=== PATIENT | male | born 1965 | race Two or more races ===

== ENCOUNTER 2017-04-30 10:40 | Inpatient (IN) | payer MEDICAID ==
[~2017-04-30] VITALS: Ht 162.6 cm; Wt 62.6 kg
[2017-04-30 10:57] VITALS: BP 147/100
--- NOTE | 2017-04-30 11:11 | Emergency Room Report ---
History of Present Illness General Chief Complaint: Malfunctioning Gastric Tube Source: Medical Record, EMS Present Illness HPI This patient presents from a custodial facility. He presents for dislodgment of his G-tube he. Per report, the G-tube was dislodged yesterday. There was no temporary placement of a Arreola catheter there were other device to keep the G-tube site patent. There no other complaints. The patient has a history of CVA and hemiparesis, seizure disorder. Allergies: Coded Allergies: No Known Allergies (Unverified , 04/30/17) Patient History Past Medical History: see triage record, HTN, GERD, CVA/TIA, dementia Past Surgical History: other - craniectomy, G-tube Social History: Denies: alcohol use, drug use, smoking Reviewed Nursing Documentation: PMH: Agreed, PSxH: Agreed Nursing Documentation-PMH Hx Cardiac Problems: Yes - Cardiomypathy Hx Hypertension: Yes Hx Gastrointestinal Problems: Yes - GERD Esophagitis, GT History Of Psychiatric Problem: Yes - Psychosis Hx Cerebrovascular Accident: Yes - hemiplegia, CVA left side Hx Seizures: Yes - convulsions Review of Systems All Other Systems: negative except mentioned in HPI Physical Exam Vital Signs Date Time Temp Pulse Resp B/P Pulse Ox O2 Delivery O2 Flow Rate FiO2 04/30/17 10:35 98.1 91 14 145/104 97 Sp02 EP Interpretation: reviewed, normal General Appearance: no apparent distress, alert, GCS 15, non-toxic Head: normocephalic, atraumatic ENT: no angioedema Neck: full range of motion Respiratory: chest non-tender, lungs clear, normal breath sounds, no respiratory distress, no retraction, no accessory muscle use Cardiovascular #1: regular rate, rhythm, no edema Gastrointestinal: non tender, soft, non-distended, no guarding, no rebound, other - G-tube site closed Rectal: deferred Musculoskeletal: other - At baseline Neurologic: alert, sensory intact, other - At baseline, hemiplegia, non-verbal Psychiatric: mood/affect normal Skin: well hydrated Medical Decision Making Diagnostic Impression: Primary Impression: Gastrojejunostomy tube dislodgement ER Course This patient presents with the G-tube dislodgment. This happened yesterday and there was no internum Arreola catheter placed in the G-tube site and the site is now closed. I am unable to replace the G-tube in the emergency room. This patient will made G-tube replacement operating room with a roustabout supervisor. Labs Test 04/30/17 11:15 White Blood Count 6.5 K/UL (4.8-10.8) Red Blood Count 5.37 M/UL (4.70-6.10) Hemoglobin 17.5 G/DL (14.2-18.0) Hematocrit 51.3 % (42.0-52.0) Mean Corpuscular Volume 96 FL (80-99) Mean Corpuscular Hemoglobin 32.6 PG (27.0-31.0) Mean Corpuscular Hemoglobin Concent 34.1 G/DL (32.0-36.0) Red Cell Distribution Width 11.6 % (11.6-14.8) Platelet Count 212 K/UL (150-450) Mean Platelet Volume 9.4 FL (6.5-10.1) Neutrophils (%) (Auto) 69.4 % (45.0-75.0) Lymphocytes (%) (Auto) 22.2 % (20.0-45.0) Monocytes (%) (Auto) 5.1 % (1.0-10.0) Eosinophils (%) (Auto) 2.2 % (0.0-3.0) Basophils (%) (Auto) 1.1 % (0.0-2.0) Sodium Level 141 mEQ/L (135-145) Potassium Level 4.0 mEQ/L (3.4-4.9) Chloride Level 101 mEQ/L (98-107) Carbon Dioxide Level 24 mEQ/L (20-30) Anion Gap 16 (5-15) Blood Urea Nitrogen 15 mg/dL (7-23) Creatinine 0.7 mg/dL (0.7-1.2) Estimat Glomerular Filtration Rate > 60 mL/min (>60) Glucose Level 100 mg/dL (74-106) Calcium Level 9.5 mg/dL (8.6-10.2) Last Vital Signs Date Time Temp Pulse Resp B/P Pulse Ox O2 Delivery O2 Flow Rate FiO2 04/30/17 10:57 98.1 91 16 147/100 100 Disposition: ADMITTED INPATIENT Condition: Stable MELINDA KAHN D.O. Apr 30, 2017 11:11
[2017-04-30 11:30] VITALS: BP 123/89
[2017-04-30] MEDS ORDERED: ACETAMINOPHEN120 MG PO (11:33)
[2017-04-30] MEDS ORDERED: LOPRESSOR HCT1 EAC3 ORAL (11:33)
[2017-04-30] MEDS ORDERED: FLEET ENEMA133 M1 RC (11:33)
[2017-04-30] MEDS ORDERED: SIMVASTATIN20 MG ORAL (11:33)
[2017-04-30] MEDS ORDERED: ASPIR 8181 MG ORAL (11:33)
[2017-04-30] MEDS ORDERED: MULTI-DAY PLUS1 EAC1 PO (11:33)
[2017-04-30] MEDS ORDERED: KEPPRA500 M4 ORAL (11:33)
[2017-04-30 11:36] LABS: BASOPHILS % (AUTO) 1.1 % (0.0-2.0); EOSINOPHILS % (AUTO) 2.2 % (0.0-3.0); LYMPHOCYTES % (AUTO) 22.2 % (20.0-45.0); MEAN CORPUSCULAR HEMOGLOBIN 32.6 PG (27.0-31.0); MEAN CORPUSCULAR HGB CONC 34.1 G/DL (32.0-36.0); MEAN CORPUSCULAR VOLUME 96 FL (80-99); MEAN PLATELET VOLUME 9.4 FL (6.5-10.1); MONOCYTES % (AUTO) 5.1 % (1.0-10.0); NEUTROPHILS % (AUTO) 69.4 % (45.0-75.0); PLATELET COUNT 212 K/UL (150-450); RED BLOOD COUNT 5.37 M/UL (4.70-6.10); RED CELL DISTRIBUTION WIDTH 11.6 % (11.6-14.8); WHITE BLOOD COUNT 6.5 K/UL (4.8-10.8)
[2017-04-30 12:01] LABS: ANION GAP 16 (5-15); CALCIUM 9.5 mg/dL (8.6-10.2); CARBON DIOXIDE 24 mEQ/L (20-30); CHLORIDE 101 mEQ/L (98-107); CREATININE 0.7 mg/dL (0.7-1.2); GLOMERULAR FILTRATION RATE > 60 mL/min (>60); HEMOLYSIS 14; SODIUM 141 mEQ/L (135-145)
[2017-04-30 12:30] VITALS: BP 123/86
[2017-04-30] MEDS ORDERED: LORazepam Inj 2mg/ml 1ml IV PRN (12:30)
[2017-04-30] MEDS ORDERED: Morphine Sulfate 2mg/ml Inj IVP PRN (13:00)
[2017-04-30] MEDS: D5 1/2NS 1,000 ML IV SCH (14:03)
[2017-04-30 15:48] VITALS: BP 131/89
--- NOTE | 2017-04-30 16:02 | History and Physical ---
History of Present Illness General Reason for Hospitalization: Malfunctioning Gastric Tube Present Illness Allergies: Coded Allergies: No Known Allergies (Unverified , 04/30/17) Medication History Scheduled Aspirin* (Aspir 81*), 81 MG ORAL DAILY, (Reported) Levetiracetam (Keppra), 500 MG ORAL EVERY 12 HOURS, (Reported) Metoprolol/Hydrochlorothiazide (Lopressor Hct 50-25 Tablet), 1 TAB ORAL Q12HR, ( Reported) Multivitamin-Min/Iron/FA/Vit K (Multi-Day Plus Minerals Tablet), 1 EACH PO DAILY , (Reported) Na Phos,M-B/Na Phos,Di-Ba (Fleet Enema), 133 ML RC EVERY OTHER DAY, (Reported) Simvastatin (Zocor), 20 MG ORAL BEDTIME, (Reported) Scheduled PRN Acetaminophen* (Tylenol*), 650 MG PO Q4H PRN for For Pain, (Reported) Patient History Healthcare decision maker Chuckie valencia Resuscitation status Full Code Advanced Directive on File No Physical Exam Last 24 Hour Vital Signs Date Time Temp Pulse Resp B/P Pulse Ox O2 Delivery O2 Flow Rate FiO2 04/30/17 15:48 98.2 94 22 131/89 99 Room Air 04/30/17 12:54 98.1 84 15 123/86 95 Room Air 04/30/17 12:30 84 15 123/86 95 Room Air 04/30/17 11:30 84 20 123/89 93 Room Air 04/30/17 10:57 98.1 91 16 147/100 100 04/30/17 10:35 98.1 91 14 145/104 97 Laboratory Tests Test 04/30/17 11:15 White Blood Count 6.5 K/UL (4.8-10.8) Red Blood Count 5.37 M/UL (4.70-6.10) Hemoglobin 17.5 G/DL (14.2-18.0) Hematocrit 51.3 % (42.0-52.0) Mean Corpuscular Volume 96 FL (80-99) Mean Corpuscular Hemoglobin 32.6 PG (27.0-31.0) H Mean Corpuscular Hemoglobin Concent 34.1 G/DL (32.0-36.0) Red Cell Distribution Width 11.6 % (11.6-14.8) Platelet Count 212 K/UL (150-450) Mean Platelet Volume 9.4 FL (6.5-10.1) Neutrophils (%) (Auto) 69.4 % (45.0-75.0) Lymphocytes (%) (Auto) 22.2 % (20.0-45.0) Monocytes (%) (Auto) 5.1 % (1.0-10.0) Eosinophils (%) (Auto) 2.2 % (0.0-3.0) Basophils (%) (Auto) 1.1 % (0.0-2.0) Prothrombin Time 10.0 SEC (9.30-11.50) Prothromb Time International Ratio 1.0 (0.9-1.1) Activated Partial Thromboplast Time 28 SEC (23-33) Sodium Level 141 mEQ/L (135-145) Potassium Level 4.0 mEQ/L (3.4-4.9) Chloride Level 101 mEQ/L (98-107) Carbon Dioxide Level 24 mEQ/L (20-30) Anion Gap 16 (5-15) H Blood Urea Nitrogen 15 mg/dL (7-23) Creatinine 0.7 mg/dL (0.7-1.2) Estimat Glomerular Filtration Rate > 60 mL/min (>60) Glucose Level 100 mg/dL (74-106) Calcium Level 9.5 mg/dL (8.6-10.2) Height (Feet): 5 Height (Inches): 4.00 Weight (Pounds): 138 Medications Current Medications Medications (Trade) Dose Ordered Sig/Jermaine Route PRN Reason Start Time Stop Time Status Last Admin Dose Admin Dextrose STAT PRN IV Hypoglycemia 04/30/17 12:30 05/30/17 12:29 Dextrose/Sodium Chloride (D5 0.45% NS) 1,000 ml @ 50 mls/hr Q20H IV 04/30/17 12:30 05/30/17 12:29 04/30/17 14:03 Heparin Sodium (Porcine) (Heparin 5000 units/ml) 5,000 units EVERY 12 HOURS SUBQ 04/30/17 21:00 05/30/17 20:59 Lorazepam (Ativan 2mg/ml 1ml) 0.5 mg Q4H PRN IV For Anxiety 04/30/17 12:30 05/07/17 12:29 Morphine Sulfate (Morphine Sulfate) 1 mg Q4H PRN IVP For Pain 04/30/17 13:00 05/07/17 12:59 Ondansetron HCl (Zofran) 4 mg Q6H PRN IVP Nausea & Vomiting 04/30/17 12:30 05/30/17 12:29 MELANIE GARCIA Apr 30, 2017 16:02
[2017-04-30 20:00] VITALS: BP 125/92
[2017-04-30] MEDS: Heparin 5000 units/ml inj SUBQ SCH (22:02)
[2017-04-30 23:58] VITALS: BP 124/90
[2017-05-01 04:00] VITALS: BP 141/72
[2017-05-01 07:25] LABS: BASOPHILS % (AUTO) 1.2 % (0.0-2.0); EOSINOPHILS % (AUTO) 2.7 % (0.0-3.0); LYMPHOCYTES % (AUTO) 26.5 % (20.0-45.0); MEAN CORPUSCULAR HEMOGLOBIN 33.3 PG (27.0-31.0); MEAN CORPUSCULAR HGB CONC 34.9 G/DL (32.0-36.0); MEAN CORPUSCULAR VOLUME 95 FL (80-99); MONOCYTES % (AUTO) 7.2 % (1.0-10.0); NEUTROPHILS % (AUTO) 62.4 % (45.0-75.0); PLATELET COUNT 207 K/UL (150-450); RED BLOOD COUNT 5.06 M/UL (4.70-6.10); RED CELL DISTRIBUTION WIDTH 11.8 % (11.6-14.8); WHITE BLOOD COUNT 6.1 K/UL (4.8-10.8)
[2017-05-01 07:32] LABS: ALANINE AMINOTRANSFERASE 25 U/L (3-41); ALBUMIN/GLOBULIN RATIO 1.1 (1.0-2.7); ANION GAP 12 (5-15); ASPARTATE AMINO TRANSFERASE 23 U/L (5-40); CALCIUM 8.9 mg/dL (8.6-10.2); CARBON DIOXIDE 24 mEQ/L (20-30); CHLORIDE 105 mEQ/L (98-107); CHOLESTEROL 162 mg/dL (< 200); CHOLESTEROL/HDL RATIO 5.1 (3.3-4.4); CREATININE 0.7 mg/dL (0.7-1.2); GLOMERULAR FILTRATION RATE > 60 mL/min (>60); HEMOLYSIS 7; LDL CHOLESTEROL (CALC.) 93 mg/dL (60-99); POTASSIUM 3.5 mEQ/L (3.4-4.9); SODIUM 141 mEQ/L (135-145); TOTAL PROTEIN 7.8 g/dL (6.6-8.7)
[2017-05-01 08:02] VITALS: BP 128/89
--- NOTE | 2017-05-01 08:37 | Diagnostic Imaging Report ---
APPROVED REPORT CPT Code: 17187 Present Symptoms Lower Extremity Pain: Left BILATERAL: Imaging reveals a patent deep venous system bilaterally. There is no evidence of thrombus within the femoral, popliteal or tibial segments. The greater saphenous veins are also within normal limits. Doppler indicates normal spontaneous flow within these segments.
[2017-05-01] MEDS: D5 1/2NS 1,000 ML IV SCH (08:51)
[2017-05-01] MEDS: Heparin 5000 units/ml inj SUBQ SCH ×2 (08:51→20:34)
[2017-05-01 11:43] VITALS: BP 131/89
--- NOTE | 2017-05-01 14:16 | GI Initial Consult Note ---
History of Present Illness General Date patient seen: May 01, 2017 Time patient seen: 13:00 Reason for Hospitalization: Malfunctioning Gastric Tube Referring physician: MELANIE PALENCIA Reason for Consultation: GT DISLODGEMENT Present Illness HPI This patient presents from a snf facility. He presents for dislodgment of his G-tube he. Per report, the G-tube was dislodged yesterday. There was no temporary placement of a Arreola catheter there were other device to keep the G-tube site patent. There no other complaints. The patient has a history of CVA and hemiparesis, seizure disorder. GI Consult. HPI as noted above. GI consulted for GT dislodgement. GT stoma assessed, closed with min amounts of drainage noted. ROS limited. Home Meds Reported Medications Acetaminophen* (TYLENOL*) 120 Mg Supp.rect, 650 MG PO Q4H Y for For Pain, SUPP 04/30/17 Simvastatin (ZOCOR) 20 Mg Tablet, 20 MG ORAL BEDTIME, TAB 04/30/17 Multivitamin-Min/Iron/FA/Vit K (Multi-Day Plus Minerals Tablet) 1 Each Tablet, 1 EACH PO DAILY, TAB 04/30/17 Metoprolol/Hydrochlorothiazide (LOPRESSOR HCT 50-25 TABLET) 1 Each Tablet, 1 TAB ORAL Q12HR, TAB 04/30/17 Levetiracetam (KEPPRA) 500 Mg Tablet, 500 MG ORAL EVERY 12 HOURS, #60 TAB 0 Refills 04/30/17 Na Phos,M-B/Na Phos,Di-Ba (Fleet Enema) 133 Ml Enema, 133 ML RC EVERY OTHER DAY , EA 04/30/17 Aspirin* (ASPIR 81*) 81 Mg Tablet.dr, 81 MG ORAL DAILY, TAB 04/30/17 Med list reviewed/reconciled: Yes Allergies: Coded Allergies: No Known Allergies (Unverified , 04/30/17) Patient History Limited by: medical condition History Provided By: Medical Record PMH Narrative Past Medical History: see triage record, HTN, GERD, CVA/TIA, dementia Past Surgical History: other - craniectomy, G-tube Social History: Denies: alcohol use, drug use, smoking Reviewed Nursing Documentation: PMH: Agreed, PSxH: Agreed Nursing Documentation-PMH Hx Cardiac Problems: Yes - Cardiomypathy Hx Hypertension: Yes Hx Gastrointestinal Problems: Yes - GERD Esophagitis, GT History Of Psychiatric Problem: Yes - Psychosis Hx Cerebrovascular Accident: Yes - hemiplegia, CVA left side Hx Seizures: Yes - convulsions Social History: Denies: alcohol use, drug use, other, smoking Review of Systems All Other Systems: limited Physical Exam Vital Signs Date Time Temp Pulse Resp B/P Pulse Ox O2 Delivery O2 Flow Rate FiO2 04/30/17 10:35 98.1 91 14 145/104 97 04/30/17 11:30 Room Air Sp02 EP Interpretation: reviewed Labs Laboratory Tests Test 05/01/17 06:35 White Blood Count 6.1 K/UL (4.8-10.8) Red Blood Count 5.06 M/UL (4.70-6.10) Hemoglobin 16.9 G/DL (14.2-18.0) Hematocrit 48.3 % (42.0-52.0) Mean Corpuscular Volume 95 FL (80-99) Mean Corpuscular Hemoglobin 33.3 PG (27.0-31.0) H Mean Corpuscular Hemoglobin Concent 34.9 G/DL (32.0-36.0) Red Cell Distribution Width 11.8 % (11.6-14.8) Platelet Count 207 K/UL (150-450) Mean Platelet Volume 9.0 FL (6.5-10.1) Neutrophils (%) (Auto) 62.4 % (45.0-75.0) Lymphocytes (%) (Auto) 26.5 % (20.0-45.0) Monocytes (%) (Auto) 7.2 % (1.0-10.0) Eosinophils (%) (Auto) 2.7 % (0.0-3.0) Basophils (%) (Auto) 1.2 % (0.0-2.0) Sodium Level 141 mEQ/L (135-145) Potassium Level 3.5 mEQ/L (3.4-4.9) Chloride Level 105 mEQ/L (98-107) Carbon Dioxide Level 24 mEQ/L (20-30) Anion Gap 12 (5-15) Blood Urea Nitrogen 15 mg/dL (7-23) Creatinine 0.7 mg/dL (0.7-1.2) Estimat Glomerular Filtration Rate > 60 mL/min (>60) Glucose Level 106 mg/dL (74-106) Calcium Level 8.9 mg/dL (8.6-10.2) Total Bilirubin 0.9 mg/dL (0.0-1.2) Aspartate Amino Transf (AST/SGOT) 23 U/L (5-40) Alanine Aminotransferase (ALT/SGPT) 25 U/L (3-41) Alkaline Phosphatase 60 U/L (40-129) Total Protein 7.8 g/dL (6.6-8.7) Albumin 4.1 g/dL (3.5-5.2) Globulin 3.7 g/dL Albumin/Globulin Ratio 1.1 (1.0-2.7) Triglycerides Level 183 mg/dL (< 150) H Cholesterol Level 162 mg/dL (< 200) LDL Cholesterol 93 mg/dL (60-99) HDL Cholesterol 32 mg/dL (> 60) Cholesterol/HDL Ratio 5.1 (3.3-4.4) H Thyroid Stimulating Hormone (TSH) 1.000 uIU/mL (0.300-4.500) General Appearance: well appearing, no apparent distress, thin Head: normocephalic EENT: normal ENT inspection Neck: supple Respiratory: lungs clear, normal breath sounds Cardiovascular: normal rate Gastrointestinal: normal inspection, non tender, soft Rectal: normal exam Genitourinary: normal inspection Neurologic: alert Skin: normal inspection, normal color, no rash, warm/dry Lymphatic: normal inspection, no adenopathy Current Medications Current Medications Medications (Trade) Dose Ordered Sig/Jermaine Route PRN Reason Start Time Stop Time Status Last Admin Dose Admin Dextrose STAT PRN IV Hypoglycemia 04/30/17 12:30 05/30/17 12:29 Dextrose/Sodium Chloride (D5 0.45% NS) 1,000 ml @ 50 mls/hr Q20H IV 04/30/17 12:30 05/30/17 12:29 05/01/17 08:51 Heparin Sodium (Porcine) (Heparin 5000 units/ml) 5,000 units EVERY 12 HOURS SUBQ 04/30/17 21:00 05/30/17 20:59 05/01/17 08:51 Lorazepam (Ativan 2mg/ml 1ml) 0.5 mg Q4H PRN IV For Anxiety 04/30/17 12:30 05/07/17 12:29 Morphine Sulfate (Morphine Sulfate) 1 mg Q4H PRN IVP For Pain 04/30/17 13:00 05/07/17 12:59 Ondansetron HCl (Zofran) 4 mg Q6H PRN IVP Nausea & Vomiting 04/30/17 12:30 05/30/17 12:29 GI: Plan Problems: (1) Gastrojejunostomy tube dislodgement Plan Pt scheduled for PEG tomorrow. maintain NPO + IVFs, NPO @ [place]. ST evaluation for oral gratification fu labs Discussed with Dr. Avalos. Thank you for referring this patient, we will follow. Priscilla Bocanegra N.P. May 01, 2017 14:16
--- NOTE | 2017-05-01 15:47 | Pulmonology Progress Note ---
Assessment/Plan Problems: (1) Cerebrovascular accident (CVA) (2) Seizure disorder (3) Dislodged gastrostomy tube Assessment/Plan npo GI evaluation IV fluids aspiration precaution Subjective ROS Limited/Unobtainable: No Constitutional: Reports: no symptoms HEENT: Repors: no symptoms Respiratory: Reports: no symptoms Allergies: Coded Allergies: No Known Allergies (Unverified , 04/30/17) Objective Last 24 Hour Vital Signs Date Time Temp Pulse Resp B/P Pulse Ox O2 Delivery O2 Flow Rate FiO2 05/01/17 11:43 97.5 80 20 131/89 96 Room Air 05/01/17 08:02 97.0 60 21 128/89 96 Room Air 05/01/17 04:00 97.2 84 20 141/72 93 Room Air 04/30/17 23:58 97.9 92 20 124/90 95 Room Air 04/30/17 20:00 97.3 87 20 125/92 95 Room Air 04/30/17 15:48 98.2 94 22 131/89 99 Room Air Intake and Output 04/30/17 05/01/17 19:00 07:00 Intake Total 250 ml 300 ml Balance 250 ml 300 ml Intake IV Total 250 ml 300 ml # Voids 1 2 General Appearance: WD/WN HEENT: normocephalic Respiratory/Chest: chest wall non-tender, lungs clear Cardiovascular: normal peripheral pulses, normal rate Abdomen: normal bowel sounds, soft, non tender Genitourinary: normal external genitalia Extremities: no clubbing Skin: no rash Laboratory Tests 05/01/17 06:35: White Blood Count 6.1, Red Blood Count 5.06, Hemoglobin 16.9, Hematocrit 48.3, Mean Corpuscular Volume 95, Mean Corpuscular Hemoglobin 33.3H, Mean Corpuscular Hemoglobin Concent 34.9, Red Cell Distribution Width 11.8, Platelet Count 207, Mean Platelet Volume 9.0, Neutrophils (%) (Auto) 62.4, Lymphocytes (%) (Auto) 26.5, Monocytes (%) (Auto) 7.2, Eosinophils (%) (Auto) 2.7, Basophils (%) (Auto ) 1.2, Sodium Level 141, Potassium Level 3.5, Chloride Level 105, Carbon Dioxide Level 24, Anion Gap 12, Blood Urea Nitrogen 15, Creatinine 0.7, Estimat Glomerular Filtration Rate > 60, Glucose Level 106, Calcium Level 8.9, Total Bilirubin 0.9, Aspartate Amino Transf (AST/SGOT) 23, Alanine Aminotransferase ( ALT/SGPT) 25, Alkaline Phosphatase 60, Total Protein 7.8, Albumin 4.1, Globulin 3.7, Albumin/Globulin Ratio 1.1, Triglycerides Level 183H, Cholesterol Level 162 , LDL Cholesterol 93, HDL Cholesterol 32, Cholesterol/HDL Ratio 5.1H, Thyroid Stimulating Hormone (TSH) 1.000 Current Medications Medications (Trade) Dose Ordered Sig/Jermaine Route PRN Reason Start Time Stop Time Status Last Admin Dose Admin Dextrose STAT PRN IV Hypoglycemia 04/30/17 12:30 05/30/17 12:29 Dextrose/Sodium Chloride (D5 0.45% NS) 1,000 ml @ 50 mls/hr Q20H IV 04/30/17 12:30 05/30/17 12:29 05/01/17 08:51 Heparin Sodium (Porcine) (Heparin 5000 units/ml) 5,000 units EVERY 12 HOURS SUBQ 04/30/17 21:00 05/30/17 20:59 05/01/17 08:51 Lorazepam (Ativan 2mg/ml 1ml) 0.5 mg Q4H PRN IV For Anxiety 04/30/17 12:30 05/07/17 12:29 Morphine Sulfate (Morphine Sulfate) 1 mg Q4H PRN IVP For Pain 04/30/17 13:00 05/07/17 12:59 Ondansetron HCl (Zofran) 4 mg Q6H PRN IVP Nausea & Vomiting 04/30/17 12:30 05/30/17 12:29 MELANIE GARCIA May 01, 2017 15:47
[2017-05-01 15:51] VITALS: BP 125/68
[2017-05-01] MEDS ORDERED: D5 1/2NS 1000ml IV ONE (16:56)
[2017-05-01 20:00] VITALS: BP 146/95
[2017-05-02] VITALS: BP 139/104
[2017-05-02 04:00] VITALS: BP 143/98
[2017-05-02] MEDS: D5 1/2NS 1,000 ML IV SCH ×2 (04:46→23:58)
[2017-05-02 07:42] LABS: BASOPHILS % (AUTO) 1.1 % (0.0-2.0); EOSINOPHILS % (AUTO) 2.5 % (0.0-3.0); LYMPHOCYTES % (AUTO) 26.3 % (20.0-45.0); MEAN CORPUSCULAR HEMOGLOBIN 32.8 PG (27.0-31.0); MEAN CORPUSCULAR HGB CONC 34.4 G/DL (32.0-36.0); MEAN CORPUSCULAR VOLUME 95 FL (80-99); MEAN PLATELET VOLUME 9.1 FL (6.5-10.1); MONOCYTES % (AUTO) 7.2 % (1.0-10.0); NEUTROPHILS % (AUTO) 62.9 % (45.0-75.0); PLATELET COUNT 229 K/UL (150-450); RED BLOOD COUNT 5.14 M/UL (4.70-6.10); RED CELL DISTRIBUTION WIDTH 11.6 % (11.6-14.8); WHITE BLOOD COUNT 7.1 K/UL (4.8-10.8)
[2017-05-02 07:46] LABS: ANION GAP 13 (5-15); CALCIUM 8.9 mg/dL (8.6-10.2); CARBON DIOXIDE 23 mEQ/L (20-30); CHLORIDE 104 mEQ/L (98-107); CREATININE 0.6 mg/dL (0.7-1.2); GLOMERULAR FILTRATION RATE > 60 mL/min (>60); HEMOLYSIS 8; POTASSIUM 3.4 mEQ/L (3.4-4.9); SODIUM 140 mEQ/L (135-145)
[2017-05-02 08:00] VITALS: BP 126/96
[2017-05-02 08:14] LABS: PROTHROMBIN TIME 10.1 SEC (9.30-11.50)
[2017-05-02] MEDS: Heparin 5000 units/ml inj SUBQ SCH ×2 (08:31→21:00)
[2017-05-02 12:00] VITALS: BP 120/88
--- NOTE | 2017-05-02 13:48 | GI Progress Note ---
Assessment/Plan Problems: (1) Encounter for PEG (percutaneous endoscopic gastrostomy) ICD Codes: Z43.1 - Encounter for attention to gastrostomy SNOMED: 944098533, 152730850 (2) Gastrojejunostomy tube dislodgement ICD Codes: Z43.4 - Encounter for attention to other artificial openings of digestive tract SNOMED: 159873640 (3) Dislodged gastrostomy tube ICD Codes: Z43.1 - Encounter for attention to gastrostomy SNOMED: 805146569 Status: unchanged Status Narrative Discussed with Dr. Avalos. Assessment/Plan PEG cancelled, no consent >> rescheduled for tomorrow. - NPO @ [place]. - hold all blood thinners cont IVFs ST evaluation for oral gratification fu labs Subjective Subjective limited Objective Last 24 Hour Vital Signs Date Time Temp Pulse Resp B/P Pulse Ox O2 Delivery O2 Flow Rate FiO2 05/02/17 12:00 97.7 90 18 120/88 96 Room Air 05/02/17 08:00 97.8 94 18 126/96 94 Room Air 05/02/17 04:00 97.8 86 20 143/98 97 Room Air 05/02/17 00:00 97.7 96 19 139/104 91 Room Air 05/01/17 20:00 97.7 90 18 146/95 96 05/01/17 15:51 97.8 80 19 125/68 96 Room Air Intake and Output 05/01/17 05/02/17 19:00 07:00 Intake Total 550 ml 600 ml Balance 550 ml 600 ml Intake Oral 0 ml IV Total 550 ml 600 ml # Voids 3 2 Laboratory Tests Test 05/02/17 06:20 White Blood Count 7.1 K/UL (4.8-10.8) Red Blood Count 5.14 M/UL (4.70-6.10) Hemoglobin 16.8 G/DL (14.2-18.0) Hematocrit 49.0 % (42.0-52.0) Mean Corpuscular Volume 95 FL (80-99) Mean Corpuscular Hemoglobin 32.8 PG (27.0-31.0) H Mean Corpuscular Hemoglobin Concent 34.4 G/DL (32.0-36.0) Red Cell Distribution Width 11.6 % (11.6-14.8) Platelet Count 229 K/UL (150-450) Mean Platelet Volume 9.1 FL (6.5-10.1) Neutrophils (%) (Auto) 62.9 % (45.0-75.0) Lymphocytes (%) (Auto) 26.3 % (20.0-45.0) Monocytes (%) (Auto) 7.2 % (1.0-10.0) Eosinophils (%) (Auto) 2.5 % (0.0-3.0) Basophils (%) (Auto) 1.1 % (0.0-2.0) Prothrombin Time 10.1 SEC (9.30-11.50) Prothromb Time International Ratio 1.0 (0.9-1.1) Activated Partial Thromboplast Time 28 SEC (23-33) Sodium Level 140 mEQ/L (135-145) Potassium Level 3.4 mEQ/L (3.4-4.9) Chloride Level 104 mEQ/L (98-107) Carbon Dioxide Level 23 mEQ/L (20-30) Anion Gap 13 (5-15) Blood Urea Nitrogen 12 mg/dL (7-23) Creatinine 0.6 mg/dL (0.7-1.2) L Estimat Glomerular Filtration Rate > 60 mL/min (>60) Glucose Level 99 mg/dL (74-106) Calcium Level 8.9 mg/dL (8.6-10.2) Height (Feet): 5 Height (Inches): 4.00 Weight (Pounds): 138 General Appearance: no apparent distress, lethargic Cardiovascular: normal rate Respiratory/Chest: normal breath sounds, no respiratory distress Abdominal Exam: normal bowel sounds, non tender, soft Priscilla Bocanegra N.PNazario May 02, 2017 13:48
[2017-05-02 16:00] VITALS: BP 130/85
--- NOTE | 2017-05-02 19:04 | Pulmonology Progress Note ---
Assessment/Plan Problems: (1) Cerebrovascular accident (CVA) (2) Seizure disorder (3) Dislodged gastrostomy tube Assessment/Plan npo GI evaluation IV fluids aspiration precaution awaiting consent for PEG placement Subjective ROS Limited/Unobtainable: Yes Constitutional: Reports: no symptoms HEENT: Repors: no symptoms Respiratory: Reports: no symptoms Allergies: Coded Allergies: No Known Allergies (Unverified , 04/30/17) Objective Last 24 Hour Vital Signs Date Time Temp Pulse Resp B/P Pulse Ox O2 Delivery O2 Flow Rate FiO2 05/02/17 16:00 97.0 85 18 130/85 96 Room Air 05/02/17 12:00 97.7 90 18 120/88 96 Room Air 05/02/17 08:00 97.8 94 18 126/96 94 Room Air 05/02/17 04:00 97.8 86 20 143/98 97 Room Air 05/02/17 00:00 97.7 96 19 139/104 91 Room Air 05/01/17 20:00 97.7 90 18 146/95 96 Intake and Output 05/01/17 05/02/17 19:00 07:00 Intake Total 550 ml 600 ml Balance 550 ml 600 ml Intake Oral 0 ml IV Total 550 ml 600 ml # Voids 3 2 Objective General Appearance: WD/WN HEENT: normocephalic, atraumatic Respiratory/Chest: chest wall non-tender, normal breath sounds Breasts: no masses Cardiovascular: normal peripheral pulses Abdomen: normal bowel sounds, soft, non tender Genitourinary: normal external genitalia Extremities: no cyanosis Skin: no rash Microbiology Date/Time Source Procedure Growth Status 04/30/17 11:35 Nasal Nares 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 Complete 04/30/17 11:35 Rectum VRE Culture - Final NO VANCOMYCIN RESISTANT ENTEROCOCCUS ... Complete Laboratory Tests 05/02/17 06:20: White Blood Count 7.1, Red Blood Count 5.14, Hemoglobin 16.8, Hematocrit 49.0, Mean Corpuscular Volume 95, Mean Corpuscular Hemoglobin 32.8H, Mean Corpuscular Hemoglobin Concent 34.4, Red Cell Distribution Width 11.6, Platelet Count 229, Mean Platelet Volume 9.1, Neutrophils (%) (Auto) 62.9, Lymphocytes (%) (Auto) 26.3, Monocytes (%) (Auto) 7.2, Eosinophils (%) (Auto) 2.5, Basophils (%) (Auto ) 1.1, Prothrombin Time 10.1, Prothromb Time International Ratio 1.0, Activated Partial Thromboplast Time 28, Sodium Level 140, Potassium Level 3.4, Chloride Level 104, Carbon Dioxide Level 23, Anion Gap 13, Blood Urea Nitrogen 12, Creatinine 0.6L, Estimat Glomerular Filtration Rate > 60, Glucose Level 99, Calcium Level 8.9 Current Medications Medications (Trade) Dose Ordered Sig/Jermaine Route PRN Reason Start Time Stop Time Status Last Admin Dose Admin Dextrose STAT PRN IV Hypoglycemia 04/30/17 12:30 05/30/17 12:29 Dextrose/Sodium Chloride (D5 0.45% NS) 1,000 ml @ 50 mls/hr Q20H IV 04/30/17 12:30 05/30/17 12:29 05/02/17 04:46 Heparin Sodium (Porcine) (Heparin 5000 units/ml) 5,000 units EVERY 12 HOURS SUBQ 04/30/17 21:00 05/30/17 20:59 05/01/17 20:34 Lorazepam (Ativan 2mg/ml 1ml) 0.5 mg Q4H PRN IV For Anxiety 04/30/17 12:30 05/07/17 12:29 Morphine Sulfate (Morphine Sulfate) 1 mg Q4H PRN IVP For Pain 04/30/17 13:00 05/07/17 12:59 Ondansetron HCl (Zofran) 4 mg Q6H PRN IVP Nausea & Vomiting 04/30/17 12:30 05/30/17 12:29 MELANIE GARCIA May 02, 2017 19:04
[2017-05-02 20:00] VITALS: BP 127/89
[2017-05-03] VITALS: BP 134/92
[2017-05-03 04:00] VITALS: BP 133/93
--- NOTE | 2017-05-03 06:54 | Anethesia Preoperative Eval ---
Anesthesia Pre-op PMH/ROS General Date of Evaluation: May 03, 2017 Time of Evaluation: 06:50 Anesthesiologist: maye ASA Score: ASA 3 Mallampati Score Class I : Soft palate, uvula, fauces, pillars visible Class II: Soft palate, uvula, fauces visible Class III: Soft palate, base of uvula visible Class IV: Only hard plate visible Mallampati Classification: Class II Surgeon: luda Diagnosis: gtube dislodgement Family History: no anesthesia problems Allergies: Coded Allergies: No Known Allergies (Unverified , 04/30/17) Medications: see eMAR Past Medical History Cardiovascular: Reports: HTN, other - cardiomyopathy Gastrointestinal/Genitourinary: Reports: GERD, other - esophagitis Neurologic/Psychiatric: Reports: CVA, other - sz dz, papralysis, Anesthesia Pre-op Phys. Exam Physician Exam Last Vital Signs Date Time Temp Pulse Resp B/P Pulse Ox O2 Delivery O2 Flow Rate FiO2 05/03/17 04:00 97.0 70 20 133/93 97 Room Air Constitutional: NAD Neurologic: other - paralysis Respiratory: CTA Gastrointestinal: S/NT/ND Airway Exam Mallampati Score: Class II MO: full Neck: supple TMD: 2fb ROM: limited Teeth: missing Anesthesia Pre-op A/P Labs Labs Test 04/30/17 11:15 05/01/17 06:35 05/02/17 06:20 White Blood Count 6.5 K/UL (4.8-10.8) 6.1 K/UL (4.8-10.8) 7.1 K/UL (4.8-10.8) Red Blood Count 5.37 M/UL (4.70-6.10) 5.06 M/UL (4.70-6.10) 5.14 M/UL (4.70-6.10) Hemoglobin 17.5 G/DL (14.2-18.0) 16.9 G/DL (14.2-18.0) 16.8 G/DL (14.2-18.0) Hematocrit 51.3 % (42.0-52.0) 48.3 % (42.0-52.0) 49.0 % (42.0-52.0) Mean Corpuscular Volume 96 FL (80-99) 95 FL (80-99) 95 FL (80-99) Mean Corpuscular Hemoglobin 32.6 PG (27.0-31.0) 33.3 PG (27.0-31.0) 32.8 PG (27.0-31.0) Mean Corpuscular Hemoglobin Concent 34.1 G/DL (32.0-36.0) 34.9 G/DL (32.0-36.0) 34.4 G/DL (32.0-36.0) Red Cell Distribution Width 11.6 % (11.6-14.8) 11.8 % (11.6-14.8) 11.6 % (11.6-14.8) Platelet Count 212 K/UL (150-450) 207 K/UL (150-450) 229 K/UL (150-450) Mean Platelet Volume 9.4 FL (6.5-10.1) 9.0 FL (6.5-10.1) 9.1 FL (6.5-10.1) Neutrophils (%) (Auto) 69.4 % (45.0-75.0) 62.4 % (45.0-75.0) 62.9 % (45.0-75.0) Lymphocytes (%) (Auto) 22.2 % (20.0-45.0) 26.5 % (20.0-45.0) 26.3 % (20.0-45.0) Monocytes (%) (Auto) 5.1 % (1.0-10.0) 7.2 % (1.0-10.0) 7.2 % (1.0-10.0) Eosinophils (%) (Auto) 2.2 % (0.0-3.0) 2.7 % (0.0-3.0) 2.5 % (0.0-3.0) Basophils (%) (Auto) 1.1 % (0.0-2.0) 1.2 % (0.0-2.0) 1.1 % (0.0-2.0) Prothrombin Time 10.0 SEC (9.30-11.50) 10.1 SEC (9.30-11.50) Prothromb Time International Ratio 1.0 (0.9-1.1) 1.0 (0.9-1.1) Activated Partial Thromboplast Time 28 SEC (23-33) 28 SEC (23-33) Sodium Level 141 mEQ/L (135-145) 141 mEQ/L (135-145) 140 mEQ/L (135-145) Potassium Level 4.0 mEQ/L (3.4-4.9) 3.5 mEQ/L (3.4-4.9) 3.4 mEQ/L (3.4-4.9) Chloride Level 101 mEQ/L (98-107) 105 mEQ/L (98-107) 104 mEQ/L (98-107) Carbon Dioxide Level 24 mEQ/L (20-30) 24 mEQ/L (20-30) 23 mEQ/L (20-30) Anion Gap 16 (5-15) 12 (5-15) 13 (5-15) Blood Urea Nitrogen 15 mg/dL (7-23) 15 mg/dL (7-23) 12 mg/dL (7-23) Creatinine 0.7 mg/dL (0.7-1.2) 0.7 mg/dL (0.7-1.2) 0.6 mg/dL (0.7-1.2) Estimat Glomerular Filtration Rate > 60 mL/min (>60) > 60 mL/min (>60) > 60 mL/min (>60) Glucose Level 100 mg/dL (74-106) 106 mg/dL (74-106) 99 mg/dL (74-106) Calcium Level 9.5 mg/dL (8.6-10.2) 8.9 mg/dL (8.6-10.2) 8.9 mg/dL (8.6-10.2) Total Bilirubin 0.9 mg/dL (0.0-1.2) Aspartate Amino Transf (AST/SGOT) 23 U/L (5-40) Alanine Aminotransferase (ALT/SGPT) 25 U/L (3-41) Alkaline Phosphatase 60 U/L (40-129) Total Protein 7.8 g/dL (6.6-8.7) Albumin 4.1 g/dL (3.5-5.2) Globulin 3.7 g/dL Albumin/Globulin Ratio 1.1 (1.0-2.7) Triglycerides Level 183 mg/dL (< 150) Cholesterol Level 162 mg/dL (< 200) LDL Cholesterol 93 mg/dL (60-99) HDL Cholesterol 32 mg/dL (> 60) Cholesterol/HDL Ratio 5.1 (3.3-4.4) Thyroid Stimulating Hormone (TSH) 1.000 uIU/mL (0.300-4.500) Risk Assessment & Plan Assessment: asa3 Plan: mac Status Change Before Surgery: No Pre-Antibiotics Drug: TAN [place] May 03, 2017 06:54
--- NOTE | 2017-05-03 07:53 | Pulmonology Progress Note ---
Assessment/Plan Assessment/Plan ASSESSMENT dislodged GJ tube hx of CVA seizure disorder dysphagia high aspiration risk PLAN OF CARE MS floor NPO IVF GI follows bioethics recommendations noted and appreciated GI to proceed with GJ tube replacement strict aspiration precautions swallow eval for oral gratification Venous Duplex BLE negative Pain management DVT GI prophylaxis case discussed and evaluated by supervising physician Subjective Allergies: Coded Allergies: No Known Allergies (Unverified , 04/30/17) Subjective afebrile, no leucocytosis awaiting for GT replacement Objective Last 24 Hour Vital Signs Date Time Temp Pulse Resp B/P Pulse Ox O2 Delivery O2 Flow Rate FiO2 05/03/17 04:00 97.0 70 20 133/93 97 Room Air 05/03/17 00:00 96.8 79 20 134/92 96 Room Air 05/02/17 20:00 98.1 86 20 127/89 96 Room Air 05/02/17 16:00 97.0 85 18 130/85 96 Room Air 05/02/17 12:00 97.7 90 18 120/88 96 Room Air 05/02/17 08:00 97.8 94 18 126/96 94 Room Air Intake and Output 05/02/17 05/03/17 19:00 07:00 Intake Total 600 ml 500 ml Balance 600 ml 500 ml Intake Oral 0 ml IV Total 600 ml 500 ml # Voids 3 3 General Appearance: no acute distress, other - chronically ill looking bedridden male, easily arousable , nonverbal, nodding appropriately in response to simple questions HEENT: normocephalic, atraumatic, anicteric Respiratory/Chest: chest wall non-tender, normal breath sounds, no respiratory distress, no accessory muscle use Cardiovascular: normal peripheral pulses, normal rate, regular rhythm, no JVD Abdomen: normal bowel sounds, soft, non tender, non distended Genitourinary: normal external genitalia Extremities: no edema, pedal pulses normal Neurologic/Psychiatric: abnormal gait - bedridden , other - easily arousable, nonverbal, bedridden Musculoskeletal: atrophy - BLE Microbiology Date/Time Source Procedure Growth Status 04/30/17 11:35 Nasal Nares 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 Complete 04/30/17 11:35 Rectum VRE Culture - Final NO VANCOMYCIN RESISTANT ENTEROCOCCUS ... Complete Current Medications Medications (Trade) Dose Ordered Sig/Jermaine Route PRN Reason Start Time Stop Time Status Last Admin Dose Admin Dextrose STAT PRN IV Hypoglycemia 04/30/17 12:30 05/30/17 12:29 Dextrose/Sodium Chloride (D5 0.45% NS) 1,000 ml @ 50 mls/hr Q20H IV 04/30/17 12:30 05/30/17 12:29 05/02/17 23:58 Heparin Sodium (Porcine) (Heparin 5000 units/ml) 5,000 units EVERY 12 HOURS SUBQ 04/30/17 21:00 05/30/17 20:59 05/01/17 20:34 Lorazepam (Ativan 2mg/ml 1ml) 0.5 mg Q4H PRN IV For Anxiety 04/30/17 12:30 05/07/17 12:29 Morphine Sulfate (Morphine Sulfate) 1 mg Q4H PRN IVP For Pain 04/30/17 13:00 05/07/17 12:59 Ondansetron HCl (Zofran) 4 mg Q6H PRN IVP Nausea & Vomiting 04/30/17 12:30 05/30/17 12:29 Jennifer Powell NP (Vanchtein) May 03, 2017 07:53
[2017-05-03 08:27] VITALS: BP 124/78
[2017-05-03 08:45] LABS: BASOPHILS % (AUTO) 0.9 % (0.0-2.0); EOSINOPHILS % (AUTO) 3.3 % (0.0-3.0); LYMPHOCYTES % (AUTO) 25.7 % (20.0-45.0); MEAN CORPUSCULAR HEMOGLOBIN 33.1 PG (27.0-31.0); MEAN CORPUSCULAR HGB CONC 34.6 G/DL (32.0-36.0); MEAN CORPUSCULAR VOLUME 95 FL (80-99); MEAN PLATELET VOLUME 8.3 FL (6.5-10.1); MONOCYTES % (AUTO) 7.9 % (1.0-10.0); NEUTROPHILS % (AUTO) 62.2 % (45.0-75.0); PLATELET COUNT 197 K/UL (150-450); RED BLOOD COUNT 5.05 M/UL (4.70-6.10); RED CELL DISTRIBUTION WIDTH 11.3 % (11.6-14.8)
[2017-05-03 08:52] LABS: ANION GAP 11 (5-15); CALCIUM 8.8 mg/dL (8.6-10.2); CARBON DIOXIDE 25 mEQ/L (20-30); CHLORIDE 105 mEQ/L (98-107); CREATININE 0.6 mg/dL (0.7-1.2); GLOMERULAR FILTRATION RATE > 60 mL/min (>60); HEMOLYSIS 7; POTASSIUM 3.5 mEQ/L (3.4-4.9); SODIUM 141 mEQ/L (135-145)
[2017-05-03] MEDS: Heparin 5000 units/ml inj SUBQ SCH ×2 (08:59→21:44)
[2017-05-03 09:35] LABS: PROTHROMBIN TIME 10.4 SEC (9.30-11.50)
--- NOTE | 2017-05-03 12:22 | General Progress Note ---
Progress Note Progress Note Bioethics The patient is unrepresented and needs G-tube to replace one that has fallen out. He nods in response to questions, appropriately. I see no medical ethical contradindication to replacing G tube. Maira Pardo M.D. [facility] Committee Chair MAIRA PARDO May 03, 2017 12:22
[2017-05-03 12:54] VITALS: BP 118/83
--- NOTE | 2017-05-03 14:19 | GI Progress Note ---
Assessment/Plan Problems: (1) Encounter for PEG (percutaneous endoscopic gastrostomy) ICD Codes: Z43.1 - Encounter for attention to gastrostomy SNOMED: 269634495, 832399016 (2) Gastrojejunostomy tube dislodgement ICD Codes: Z43.4 - Encounter for attention to other artificial openings of digestive tract SNOMED: 713741760 (3) Dislodged gastrostomy tube ICD Codes: Z43.1 - Encounter for attention to gastrostomy SNOMED: 760187936 Status: unchanged Status Narrative Discussed with Dr. Avalos. Assessment/Plan PEG cancelled, no consent (unable to reach sister) >> rescheduled cont IVFs ST evaluation for oral gratification fu labs Subjective Subjective limited Objective Last 24 Hour Vital Signs Date Time Temp Pulse Resp B/P Pulse Ox O2 Delivery O2 Flow Rate FiO2 05/03/17 12:54 97.5 75 14 118/83 94 Room Air 05/03/17 08:27 97.5 83 14 124/78 96 Room Air 05/03/17 04:00 97.0 70 20 133/93 97 Room Air 05/03/17 00:00 96.8 79 20 134/92 96 Room Air 05/02/17 20:00 98.1 86 20 127/89 96 Room Air 05/02/17 16:00 97.0 85 18 130/85 96 Room Air Intake and Output 05/02/17 05/03/17 19:00 07:00 Intake Total 600 ml 550 ml Balance 600 ml 550 ml Intake Oral 0 ml IV Total 600 ml 550 ml # Voids 3 3 Laboratory Tests Test 05/03/17 07:20 White Blood Count 6.0 K/UL (4.8-10.8) Red Blood Count 5.05 M/UL (4.70-6.10) Hemoglobin 16.7 G/DL (14.2-18.0) Hematocrit 48.2 % (42.0-52.0) Mean Corpuscular Volume 95 FL (80-99) Mean Corpuscular Hemoglobin 33.1 PG (27.0-31.0) H Mean Corpuscular Hemoglobin Concent 34.6 G/DL (32.0-36.0) Red Cell Distribution Width 11.3 % (11.6-14.8) L Platelet Count 197 K/UL (150-450) Mean Platelet Volume 8.3 FL (6.5-10.1) Neutrophils (%) (Auto) 62.2 % (45.0-75.0) Lymphocytes (%) (Auto) 25.7 % (20.0-45.0) Monocytes (%) (Auto) 7.9 % (1.0-10.0) Eosinophils (%) (Auto) 3.3 % (0.0-3.0) H Basophils (%) (Auto) 0.9 % (0.0-2.0) Prothrombin Time 10.4 SEC (9.30-11.50) Prothromb Time International Ratio 1.0 (0.9-1.1) Activated Partial Thromboplast Time 27 SEC (23-33) Sodium Level 141 mEQ/L (135-145) Potassium Level 3.5 mEQ/L (3.4-4.9) Chloride Level 105 mEQ/L (98-107) Carbon Dioxide Level 25 mEQ/L (20-30) Anion Gap 11 (5-15) Blood Urea Nitrogen 11 mg/dL (7-23) Creatinine 0.6 mg/dL (0.7-1.2) L Estimat Glomerular Filtration Rate > 60 mL/min (>60) Glucose Level 102 mg/dL (74-106) Calcium Level 8.8 mg/dL (8.6-10.2) Height (Feet): 5 Height (Inches): 4.00 Weight (Pounds): 138 General Appearance: no apparent distress, alert Cardiovascular: normal rate Respiratory/Chest: normal breath sounds, no respiratory distress Abdominal Exam: normal bowel sounds, non tender, soft Extremities: normal range of motion Priscilla Bocanegra N.P. May 03, 2017 14:18
[2017-05-03 16:21] VITALS: BP 134/87
[2017-05-03 20:00] VITALS: BP 141/89
[2017-05-03] MEDS: D5 1/2NS 1,000 ML IV SCH (21:43)
[2017-05-04] VITALS: BP 142/85
[2017-05-04 04:00] VITALS: BP 124/67
--- NOTE | 2017-05-04 06:39 | General Progress Note ---
Assessment/Plan Problem List: (1) Seizure disorder ICD Codes: G40.909 - Epilepsy, unspecified, not intractable, without status epilepticus SNOMED: 659997065 (2) Cerebrovascular accident (CVA) ICD Codes: I63.9 - Cerebral infarction, unspecified SNOMED: 234401364 (3) Dislodged gastrostomy tube ICD Codes: Z43.1 - Encounter for attention to gastrostomy SNOMED: 702091910 Assessment/Plan pending PEG when consented Subjective ROS Limited/Unobtainable: No Allergies: Coded Allergies: No Known Allergies (Unverified , 04/30/17) Objective Last 24 Hour Vital Signs Date Time Temp Pulse Resp B/P Pulse Ox O2 Delivery O2 Flow Rate FiO2 05/04/17 00:00 97.9 65 20 142/85 96 Room Air 05/03/17 20:00 97.7 73 20 141/89 96 Room Air 05/03/17 16:21 98.2 70 15 134/87 96 Room Air 05/03/17 12:54 97.5 75 14 118/83 94 Room Air 05/03/17 08:27 97.5 83 14 124/78 96 Room Air Intake and Output 05/03/17 05/04/17 19:00 07:00 Intake Total 400 ml 400 ml Balance 400 ml 400 ml IV Total 400 ml 400 ml # Voids 2 Laboratory Tests 05/03/17 07:20: White Blood Count 6.0, Red Blood Count 5.05, Hemoglobin 16.7, Hematocrit 48.2, Mean Corpuscular Volume 95, Mean Corpuscular Hemoglobin 33.1H, Mean Corpuscular Hemoglobin Concent 34.6, Red Cell Distribution Width 11.3L, Platelet Count 197, Mean Platelet Volume 8.3, Neutrophils (%) (Auto) 62.2, Lymphocytes (%) (Auto) 25.7, Monocytes (%) (Auto) 7.9, Eosinophils (%) (Auto) 3.3H, Basophils (%) (Auto ) 0.9, Prothrombin Time 10.4, Prothromb Time International Ratio 1.0, Activated Partial Thromboplast Time 27, Sodium Level 141, Potassium Level 3.5, Chloride Level 105, Carbon Dioxide Level 25, Anion Gap 11, Blood Urea Nitrogen 11, Creatinine 0.6L, Estimat Glomerular Filtration Rate > 60, Glucose Level 102, Calcium Level 8.8 05/04/17 05:20: White Blood Count [Pending], Red Blood Count [Pending], Hemoglobin [Pending], Hematocrit [Pending], Mean Corpuscular Volume [Pending], Mean Corpuscular Hemoglobin [Pending], Mean Corpuscular Hemoglobin Concent [Pending], Red Cell Distribution Width [Pending], Platelet Count [Pending], Mean Platelet Volume [ Pending], Neutrophils (%) (Auto) [Pending], Lymphocytes (%) (Auto) [Pending], Monocytes (%) (Auto) [Pending], Eosinophils (%) (Auto) [Pending], Basophils (%) (Auto) [Pending], Sodium Level [Pending], Potassium Level [Pending], Chloride Level [Pending], Carbon Dioxide Level [Pending], Blood Urea Nitrogen [Pending], Creatinine [Pending], Estimat Glomerular Filtration Rate [Pending], Glucose Level [Pending], Calcium Level [Pending] Height (Feet): 5 Height (Inches): 4.00 Weight (Pounds): 138 General Appearance: no apparent distress EENT: normal ENT inspection Neck: supple Cardiovascular: normal rate Respiratory/Chest: decreased breath sounds Abdomen: normal bowel sounds, non tender, soft Extremities: non-tender RALF COREAS May 04, 2017 06:39
[2017-05-04 06:49] LABS: BASOPHILS % (AUTO) 1.2 % (0.0-2.0); EOSINOPHILS % (AUTO) 3.9 % (0.0-3.0); LYMPHOCYTES % (AUTO) 32.2 % (20.0-45.0); MEAN CORPUSCULAR HEMOGLOBIN 33.2 PG (27.0-31.0); MEAN CORPUSCULAR HGB CONC 35.1 G/DL (32.0-36.0); MEAN CORPUSCULAR VOLUME 94 FL (80-99); MEAN PLATELET VOLUME 9.3 FL (6.5-10.1); MONOCYTES % (AUTO) 7.3 % (1.0-10.0); NEUTROPHILS % (AUTO) 55.4 % (45.0-75.0); PLATELET COUNT 206 K/UL (150-450); RED CELL DISTRIBUTION WIDTH 11.4 % (11.6-14.8); WHITE BLOOD COUNT 5.5 K/UL (4.8-10.8)
[2017-05-04 06:57] LABS: ANION GAP 13 (5-15); CALCIUM 8.7 mg/dL (8.6-10.2); CARBON DIOXIDE 23 mEQ/L (20-30); CHLORIDE 106 mEQ/L (98-107); CREATININE 0.5 mg/dL (0.7-1.2); GLOMERULAR FILTRATION RATE > 60 mL/min (>60); HEMOLYSIS 3; POTASSIUM 3.3 mEQ/L (3.4-4.9); SODIUM 142 mEQ/L (135-145)
[2017-05-04 08:00] VITALS: BP 127/88
--- NOTE | 2017-05-04 08:40 | Pulmonology Progress Note ---
Assessment/Plan Assessment/Plan ASSESSMENT dislodged GJ tube dysphagia high risk for silent aspiration hx of CVA seizure disorder hypokalemia PLAN OF CARE MS floor video swallow eval noted ST recommended long term care phlebotomist nonoral feeding however for quality of life recommended special diet start diet Calorie count strict aspiration and reflux precautions with 1 to 1 supervision IVF GI follows bioethics recommendations noted and appreciated no GJ replacement done GI specialist wants to speak with sister, who couldn't be reached Venous Duplex BLE negative Pain management DVT GI prophylaxis replace K, check K in am if no sister available in 1 -2 days and calorie count sufficient, will proceed with dc case discussed and evaluated by supervising physician Subjective Allergies: Coded Allergies: No Known Allergies (Unverified , 04/30/17) Subjective afebrile, no leucocytosis awaiting for GT replacement, not put since no consent from sister passed swallow eval for oral gratification K-3.3 Objective Last 24 Hour Vital Signs Date Time Temp Pulse Resp B/P Pulse Ox O2 Delivery O2 Flow Rate FiO2 05/04/17 04:00 97.4 71 20 124/67 95 Room Air 05/04/17 00:00 97.9 65 20 142/85 96 Room Air 05/03/17 20:00 97.7 73 20 141/89 96 Room Air 05/03/17 16:21 98.2 70 15 134/87 96 Room Air 05/03/17 12:54 97.5 75 14 118/83 94 Room Air Intake and Output 05/03/17 05/04/17 19:00 07:00 Intake Total 400 ml 550 ml Balance 400 ml 550 ml IV Total 400 ml 550 ml # Voids 2 2 Objective General Appearance: no acute distress, chronically ill looking bedridden male, easily arousable , nonverbal, nodding appropriately in response to simple questions HEENT: normocephalic, atraumatic, anicteric Respiratory/Chest: chest wall non-tender, normal breath sounds, no respiratory distress, no accessory muscle use Cardiovascular: normal peripheral pulses, normal rate, regular rhythm, no JVD Abdomen: normal bowel sounds, soft, non tender, non distended Genitourinary: normal external genitalia Extremities: no edema, pedal pulses normal Neurologic/Psychiatric: abnormal gait - bedridden , other - easily arousable, nonverbal, bedridden Musculoskeletal: atrophy - BLE Laboratory Tests 05/04/17 05:20: White Blood Count 5.5, Red Blood Count 4.80, Hemoglobin 15.9, Hematocrit 45.3, Mean Corpuscular Volume 94, Mean Corpuscular Hemoglobin 33.2H, Mean Corpuscular Hemoglobin Concent 35.1, Red Cell Distribution Width 11.4L, Platelet Count 206, Mean Platelet Volume 9.3, Neutrophils (%) (Auto) 55.4, Lymphocytes (%) (Auto) 32.2, Monocytes (%) (Auto) 7.3, Eosinophils (%) (Auto) 3.9H, Basophils (%) (Auto ) 1.2, Sodium Level 142, Potassium Level 3.3L, Chloride Level 106, Carbon Dioxide Level 23, Anion Gap 13, Blood Urea Nitrogen 8, Creatinine 0.5L, Estimat Glomerular Filtration Rate > 60, Glucose Level 102, Calcium Level 8.7 Current Medications Medications (Trade) Dose Ordered Sig/Jermaine Route PRN Reason Start Time Stop Time Status Last Admin Dose Admin Dextrose STAT PRN IV Hypoglycemia 04/30/17 12:30 05/30/17 12:29 Dextrose/Sodium Chloride (D5 0.45% NS) 1,000 ml @ 50 mls/hr Q20H IV 04/30/17 12:30 05/30/17 12:29 05/03/17 21:43 Heparin Sodium (Porcine) (Heparin 5000 units/ml) 5,000 units EVERY 12 HOURS SUBQ 04/30/17 21:00 05/30/17 20:59 05/03/17 21:44 Lorazepam (Ativan 2mg/ml 1ml) 0.5 mg Q4H PRN IV For Anxiety 04/30/17 12:30 05/07/17 12:29 Morphine Sulfate (Morphine Sulfate) 1 mg Q4H PRN IVP For Pain 04/30/17 13:00 05/07/17 12:59 Ondansetron HCl (Zofran) 4 mg Q6H PRN IVP Nausea & Vomiting 04/30/17 12:30 05/30/17 12:29 Potassium Chloride (KCl 10% 40mEq Oral solution) 40 meq ONCE ONCE NG 05/04/17 08:30 05/04/17 08:31 [facility]Jennifer NP May 04, 2017 08:40
[2017-05-04] MEDS: Heparin 5000 units/ml inj SUBQ SCH ×2 (08:58→20:38)
[2017-05-04] MEDS ORDERED: KCl 10% 40mEq/30ml liquid NG ONE (09:00)
[2017-05-04] MEDS ORDERED: D5 1/2NS 1000ml IV ONE (10:38)
[2017-05-04 12:00] VITALS: BP 130/86
[2017-05-04 16:07] VITALS: BP 126/83
[2017-05-04] MEDS: D5 1/2NS 1,000 ML IV SCH (17:17)
[2017-05-04 20:00] VITALS: BP 132/88
[2017-05-05] VITALS: BP 131/88
[2017-05-05 04:00] VITALS: BP 133/78
[2017-05-05 08:19] LABS: BASOPHILS % (AUTO) 1.4 % (0.0-2.0); EOSINOPHILS % (AUTO) 3.2 % (0.0-3.0); LYMPHOCYTES % (AUTO) 22.3 % (20.0-45.0); MEAN CORPUSCULAR HEMOGLOBIN 32.6 PG (27.0-31.0); MEAN CORPUSCULAR HGB CONC 34.3 G/DL (32.0-36.0); MEAN CORPUSCULAR VOLUME 95 FL (80-99); MEAN PLATELET VOLUME 8.2 FL (6.5-10.1); NEUTROPHILS % (AUTO) 66.2 % (45.0-75.0); PLATELET COUNT 166 K/UL (150-450); RED BLOOD COUNT 4.76 M/UL (4.70-6.10); RED CELL DISTRIBUTION WIDTH 11.5 % (11.6-14.8); WHITE BLOOD COUNT 6.1 K/UL (4.8-10.8)
[2017-05-05 08:31] LABS: ANION GAP 11 (5-15); CALCIUM 8.7 mg/dL (8.6-10.2); CARBON DIOXIDE 24 mEQ/L (20-30); CHLORIDE 107 mEQ/L (98-107); CREATININE 0.6 mg/dL (0.7-1.2); GLOMERULAR FILTRATION RATE > 60 mL/min (>60); HEMOLYSIS 6; MAGNESIUM 1.7 mg/dL (1.7-2.5); POTASSIUM 3.4 mEQ/L (3.4-4.9); SODIUM 142 mEQ/L (135-145)
[2017-05-05 08:35] VITALS: BP 134/109
--- NOTE | 2017-05-05 09:05 | General Progress Note ---
Assessment/Plan Problem List: (1) Seizure disorder ICD Codes: G40.909 - Epilepsy, unspecified, not intractable, without status epilepticus SNOMED: 309057402 (2) Cerebrovascular accident (CVA) ICD Codes: I63.9 - Cerebral infarction, unspecified SNOMED: 613016123 (3) Dislodged gastrostomy tube ICD Codes: Z43.1 - Encounter for attention to gastrostomy SNOMED: 735304473 Assessment/Plan pending PEG when consented Subjective ROS Limited/Unobtainable: No Allergies: Coded Allergies: No Known Allergies (Unverified , 04/30/17) Objective Last 24 Hour Vital Signs Date Time Temp Pulse Resp B/P Pulse Ox O2 Delivery O2 Flow Rate FiO2 05/05/17 08:35 97.8 79 20 134/109 97 Room Air 05/05/17 04:00 97.7 72 20 133/78 94 Room Air 05/05/17 00:00 97.3 73 20 131/88 95 Room Air 05/04/17 20:00 97.9 75 20 132/88 96 Room Air 05/04/17 16:07 97.0 70 15 126/83 95 Room Air 05/04/17 12:00 97.7 88 20 130/86 Room Air Intake and Output 05/04/17 05/05/17 19:00 07:00 Intake Total 1390 ml 550 ml Balance 1390 ml 550 ml Intake Oral 840 ml IV Total 550 ml 550 ml # Voids 2 2 Laboratory Tests 05/05/17 07:05: White Blood Count 6.1, Red Blood Count 4.76, Hemoglobin 15.5, Hematocrit 45.2, Mean Corpuscular Volume 95, Mean Corpuscular Hemoglobin 32.6H, Mean Corpuscular Hemoglobin Concent 34.3, Red Cell Distribution Width 11.5L, Platelet Count 166, Mean Platelet Volume 8.2, Neutrophils (%) (Auto) 66.2, Lymphocytes (%) (Auto) 22.3, Monocytes (%) (Auto) 7.0, Eosinophils (%) (Auto) 3.2H, Basophils (%) (Auto ) 1.4, Sodium Level 142, Potassium Level 3.4, Chloride Level 107, Carbon Dioxide Level 24, Anion Gap 11, Blood Urea Nitrogen 4L, Creatinine 0.6L, Estimat Glomerular Filtration Rate > 60, Glucose Level 95, Calcium Level 8.7, Magnesium Level 1.7 Height (Feet): 5 Height (Inches): 4.00 Weight (Pounds): 138 General Appearance: no apparent distress EENT: normal ENT inspection Neck: supple Cardiovascular: normal rate Respiratory/Chest: decreased breath sounds Abdomen: normal bowel sounds, non tender, soft Extremities: non-tender RALF COREAS May 05, 2017 09:04
--- NOTE | 2017-05-05 09:16 | Pulmonology Progress Note ---
Assessment/Plan Assessment/Plan ASSESSMENT dislodged GJ tube hx of CVA seizure disorder dysphagia high aspiration risk PLAN OF CARE MS floor IVF GI follows bioethics recommendations noted and appreciated GI to proceed with GJ tube replacement strict aspiration precautions swallow eval for oral gratification Venous Duplex BLE negative Pain management DVT GI prophylaxis case discussed and evaluated by supervising physician Subjective Allergies: Coded Allergies: No Known Allergies (Unverified , 04/30/17) Subjective afebrile, no leucocytosis awaiting for GT replacement Objective Last 24 Hour Vital Signs Date Time Temp Pulse Resp B/P Pulse Ox O2 Delivery O2 Flow Rate FiO2 05/05/17 08:35 97.8 79 20 134/109 97 Room Air 05/05/17 04:00 97.7 72 20 133/78 94 Room Air 05/05/17 00:00 97.3 73 20 131/88 95 Room Air 05/04/17 20:00 97.9 75 20 132/88 96 Room Air 05/04/17 16:07 97.0 70 15 126/83 95 Room Air 05/04/17 12:00 97.7 88 20 130/86 Room Air Intake and Output 05/04/17 05/05/17 19:00 07:00 Intake Total 1390 ml 550 ml Balance 1390 ml 550 ml Intake Oral 840 ml IV Total 550 ml 550 ml # Voids 2 2 Objective General Appearance: no acute distress, chronically ill looking bedridden male, easily arousable , nonverbal, nodding appropriately in response to simple questions HEENT: normocephalic, atraumatic, anicteric Respiratory/Chest: chest wall non-tender, normal breath sounds, no respiratory distress, no accessory muscle use Cardiovascular: normal peripheral pulses, normal rate, regular rhythm, no JVD Abdomen: normal bowel sounds, soft, non tender, non distended Genitourinary: normal external genitalia Extremities: no edema, pedal pulses normal Neurologic/Psychiatric: abnormal gait - bedridden , other - easily arousable, nonverbal, bedridden Musculoskeletal: atrophy - BLE Laboratory Tests 05/05/17 07:05: White Blood Count 6.1, Red Blood Count 4.76, Hemoglobin 15.5, Hematocrit 45.2, Mean Corpuscular Volume 95, Mean Corpuscular Hemoglobin 32.6H, Mean Corpuscular Hemoglobin Concent 34.3, Red Cell Distribution Width 11.5L, Platelet Count 166, Mean Platelet Volume 8.2, Neutrophils (%) (Auto) 66.2, Lymphocytes (%) (Auto) 22.3, Monocytes (%) (Auto) 7.0, Eosinophils (%) (Auto) 3.2H, Basophils (%) (Auto ) 1.4, Sodium Level 142, Potassium Level 3.4, Chloride Level 107, Carbon Dioxide Level 24, Anion Gap 11, Blood Urea Nitrogen 4L, Creatinine 0.6L, Estimat Glomerular Filtration Rate > 60, Glucose Level 95, Calcium Level 8.7, Magnesium Level 1.7 Current Medications Medications (Trade) Dose Ordered Sig/Jermaine Route PRN Reason Start Time Stop Time Status Last Admin Dose Admin Dextrose STAT PRN IV Hypoglycemia 04/30/17 12:30 05/30/17 12:29 Dextrose/Sodium Chloride (D5 0.45% NS) 1,000 ml @ 50 mls/hr Q20H IV 04/30/17 12:30 05/30/17 12:29 05/04/17 17:17 Heparin Sodium (Porcine) (Heparin 5000 units/ml) 5,000 units EVERY 12 HOURS SUBQ 04/30/17 21:00 05/30/17 20:59 05/04/17 20:38 Lorazepam (Ativan 2mg/ml 1ml) 0.5 mg Q4H PRN IV For Anxiety 04/30/17 12:30 05/07/17 12:29 Morphine Sulfate (Morphine Sulfate) 1 mg Q4H PRN IVP For Pain 04/30/17 13:00 05/07/17 12:59 Ondansetron HCl (Zofran) 4 mg Q6H PRN IVP Nausea & Vomiting 04/30/17 12:30 05/30/17 12:29 Jennifer Powell NP (Vanchtein) May 05, 2017 09:16
[2017-05-05] MEDS: Heparin 5000 units/ml inj SUBQ SCH ×2 (09:35→21:11)
[2017-05-05] MEDS ORDERED: Morphine Sulfate 2mg/ml Inj IVP PRN (10:00)
[2017-05-05] MEDS ORDERED: LORazepam Inj 2mg/ml 1ml IV PRN (10:30)
[2017-05-05 12:01] VITALS: BP 133/101
[2017-05-05] MEDS: D5 1/2NS 1,000 ML IV SCH ×2 (12:30→17:47)
[2017-05-05] MEDS ORDERED: D5 1/2NS 1000ml IV ONE (15:04)
[2017-05-05 16:40] VITALS: BP 134/97
[2017-05-05 20:00] VITALS: BP 144/98
[2017-05-06] VITALS (10 sets, daily range): BP systolic 107–140; BP diastolic 68–98
[2017-05-06 07:23] LABS: BASOPHILS % (AUTO) 1.3 % (0.0-2.0); EOSINOPHILS % (AUTO) 1.8 % (0.0-3.0); LYMPHOCYTES % (AUTO) 28.2 % (20.0-45.0); MEAN CORPUSCULAR HEMOGLOBIN 33.7 PG (27.0-31.0); MEAN CORPUSCULAR HGB CONC 35.5 G/DL (32.0-36.0); MEAN CORPUSCULAR VOLUME 95 FL (80-99); MEAN PLATELET VOLUME 9.4 FL (6.5-10.1); MONOCYTES % (AUTO) 8.3 % (1.0-10.0); NEUTROPHILS % (AUTO) 60.4 % (45.0-75.0); PLATELET COUNT 168 K/UL (150-450); RED BLOOD COUNT 5.39 M/UL (4.70-6.10); RED CELL DISTRIBUTION WIDTH 11.7 % (11.6-14.8); WHITE BLOOD COUNT 6.1 K/UL (4.8-10.8)
[2017-05-06 08:10] LABS: ANION GAP 20 (5-15); CALCIUM 9.4 mg/dL (8.6-10.2); CARBON DIOXIDE 19 mEQ/L (20-30); CHLORIDE 101 mEQ/L (98-107); CREATININE 0.7 mg/dL (0.7-1.2); GLOMERULAR FILTRATION RATE > 60 mL/min (>60); HEMOLYSIS 23; POTASSIUM 3.9 mEQ/L (3.4-4.9); SODIUM 140 mEQ/L (135-145)
[2017-05-06] MEDS: Heparin 5000 units/ml inj SUBQ SCH ×2 (09:00→22:14)
--- NOTE | 2017-05-06 10:11 | General Progress Note ---
Progress Note Progress Note Pt needs a Gtube, there is no family to sign the consent. Pt is unable to sing any consent. MELANIE GARCIA May 06, 2017 10:11
--- NOTE | 2017-05-06 10:16 | Pre-Procedure Note/Attestation ---
Pre-Procedure Note/Attestation Complete Prior to Procedure Planned Procedure: not applicable Procedure Narrative: egd/peg Indications for Procedure Pre-Operative Diagnosis: FTT Attestation I attest that I discussed the nature of the procedure; its benefits; risks and complications; and alternatives (and the risks and benefits of such alternatives ), prior to the procedure, with the patient (or the patient's legal outside sales representative insurance). I attest that, if there was a reasonable possibility of needing a blood transfusion, the patient (or the patient's legal outside sales representative insurance) was given the [facility] standardized written summary, pursuant to the [place] Blood Safety Act ([place] Health and Safety Code # 1645, as amended). I attest that I re-evaluated the patient just prior to the surgery and that there has been no change in the patient's H&P, except as documented below: RALF COREAS May 06, 2017 10:16
[2017-05-06] MEDS ORDERED: Propofol 10mg/ml 20ml IV ONE (12:30)
[2017-05-06] MEDS ORDERED: Lidocaine 1% MPF 10mg/ml 5ml ONE (12:30)
[2017-05-06] MEDS ORDERED: LR 1000ml ONE (12:30)
[2017-05-06] MEDS ORDERED: cefOXitin 1gm Inj ONE (12:30)
[2017-05-06] MEDS ORDERED: NS 550ML IV ONE (12:35)
--- NOTE | 2017-05-06 12:40 | Endoscopy Procedure Note ---
Endoscopy Procedure Note Indication for Procedure: FTT Procedures Performed: EGD, PEG Operative Findings/Diagnosis: same Specimen: none Pt Tolerated Procedure Well: Yes Estimated Blood Loss: none Anesthesiologist: oksana Anesthesia: MAC Implant(s) used?: No 50 yrs or older w/o bx or poly: Not Applicable 10yrs. F/U not recommended: Not Applicable RALF COREAS May 06, 2017 12:40
--- NOTE | 2017-05-06 12:59 | Immediate Post-Op Evaluation ---
Immediate Post-Op Evalulation Immediate Post-Op Evalulation Procedure: PEG placement Date of Evaluation: Apr 18, 2017 Time of Evaluation: 12:50 IV Fluids: 200 Blood Pressure Systolic: 114 Blood Pressure Diastolic: 68 Pulse Rate: 94 Respiratory Rate: 14 O2 Sat by Pulse Oximetry: 100 Nausea: No Vomiting: No Complications none Patient Status: reacts, patent Hydration Status: adequate Drug: cefoxitin Given Within 1 Hr of Incision: Yes Time Given: 12:30 CHANG MUSE CRNA May 06, 2017 12:59
--- NOTE | 2017-05-06 13:01 | Anethesia Preoperative Eval ---
Anesthesia Pre-op PMH/ROS General Date of Evaluation: May 06, 2017 Time of Evaluation: 12:30 Anesthesiologist: lynette ASA Score: ASA 3 Mallampati Score Class I : Soft palate, uvula, fauces, pillars visible Class II: Soft palate, uvula, fauces visible Class III: Soft palate, base of uvula visible Class IV: Only hard plate visible Mallampati Classification: Class II Surgeon: luda Diagnosis: g tube dislodgement Surgical Procedure: PEG Anesthesia History: none Allergies: Coded Allergies: No Known Allergies (Unverified , 04/30/17) Past Medical History Cardiovascular: Reports: HTN, other - cardiomyopathy Pulmonary: Denies: COPD, HOWIE, asthma, other Gastrointestinal/Genitourinary: Reports: GERD Neurologic/Psychiatric: Reports: CVA, other - seizure disorder HEENT: Denies: ATQAS[place] (L), ATQASUK (R), cataract (L), cataract (R), glaucoma, other Musculoskeletal/Integumentary: Denies: DDD, DJD, OA, RA, edema, other PSxH Narrative: g tube Anesthesia Pre-op Phys. Exam Physician Exam Last Vital Signs Date Time Temp Pulse Resp B/P Pulse Ox O2 Delivery O2 Flow Rate FiO2 05/06/17 12:00 98.8 94 18 125/84 98 Room Air Constitutional: other Neurologic: other - demented Cardiovascular: other - ST in 100s Respiratory: other Gastrointestinal: S/NT/ND Airway Exam Mallampati Score: Class II ROM: limited Dentures: no lower, no upper Anesthesia Pre-op A/P Labs Hematology Test 05/06/17 06:35 White Blood Count 6.1 K/UL (4.8-10.8) Red Blood Count 5.39 M/UL (4.70-6.10) Hemoglobin 18.2 G/DL (14.2-18.0) *H Hematocrit 51.2 % (42.0-52.0) Mean Corpuscular Volume 95 FL (80-99) Mean Corpuscular Hemoglobin 33.7 PG (27.0-31.0) H Mean Corpuscular Hemoglobin Concent 35.5 G/DL (32.0-36.0) Red Cell Distribution Width 11.7 % (11.6-14.8) Platelet Count 168 K/UL (150-450) Mean Platelet Volume 9.4 FL (6.5-10.1) Neutrophils (%) (Auto) 60.4 % (45.0-75.0) Lymphocytes (%) (Auto) 28.2 % (20.0-45.0) Monocytes (%) (Auto) 8.3 % (1.0-10.0) Eosinophils (%) (Auto) 1.8 % (0.0-3.0) Basophils (%) (Auto) 1.3 % (0.0-2.0) Chemistry Test 05/06/17 06:35 Sodium Level 140 mEQ/L (135-145) Potassium Level 3.9 mEQ/L (3.4-4.9) Chloride Level 101 mEQ/L (98-107) Carbon Dioxide Level 19 mEQ/L (20-30) L Anion Gap 20 (5-15) H Blood Urea Nitrogen 5 mg/dL (7-23) L Creatinine 0.7 mg/dL (0.7-1.2) Estimat Glomerular Filtration Rate > 60 mL/min (>60) Glucose Level 86 mg/dL (74-106) Calcium Level 9.4 mg/dL (8.6-10.2) Studies Pre-op Studies: EKG - st 100s Risk Assessment & Plan Plan: mac Status Change Before Surgery: No Pre-Antibiotics Drug: cefoxitin Given Within 1 Hr of Incision: Yes Time Given: 12:30 CHANG MUSE CRNA May 06, 2017 13:01
--- NOTE | 2017-05-06 13:04 | 48 Hour Post Anesthesia Eval ---
Post Anesthesia Evaluation Procedure: PEG placement Date of Evaluation: May 06, 2017 Time of Evaluation: 13:03 Blood Pressure Systolic: 115 0: 94 Pulse Rate: 99 Respiratory Rate: 14 O2 Sat by Pulse Oximetry: 99 Airway: patent Nausea: No Vomiting: No Hydration Status: adequate Cardiopulmonary Status: stable Mental Status/LOC: patient returned to baseline Post-Anesthesia Complications: none Follow-up care needed: N/A CHANG MUSE CRNA May 06, 2017 13:04
--- NOTE | 2017-05-06 18:01 | Procedure Note ---
DATE OF PROCEDURE: 05/06/2017 SURGEON: González Avalos M.D. PROCEDURE: Upper endoscopy with PEG placement. ANESTHESIA: Per [employer] MANAGER, Ramila Berumen. INSTRUMENT: Olympus adult flexible upper endoscope. INDICATION: Dysphagia and failure to thrive. REASON FOR PROCEDURE: The procedure, risks, benefits, and possible consequences, including hemorrhage, aspiration, perforation and infection, and alternative treatments, were explained to the patient/legal guardian by Dr. González Avalos and the patient/legal guardian understood and accepted these risks. DESCRIPTION OF PROCEDURE: After informed consent was obtained and the patient was adequately sedated, Olympus upper endoscope was advanced from the mouth into the second portion of the duodenum and retroflexion was performed in the stomach. The patient has evidence of acute gastritis. There is old G-tube site, which is already closed. Under endoscopic guidance and under sterile condition, a 20-Wolof pull type of G-tube was placed in the epigastric area. The distance from the tip of the tube to the skin was about 2.5 cm in size. The patient tolerated the procedure without any complication. SUMMARY OF FINDINGS: Status post successful PEG placement. RECOMMENDATION: 1. Abdominal binder. 2. Elevate the head of the bed at times. 3. G-tube flush. 4. G-tube care. 5. Start tube feeding later today. 6. The patient received dose of antibiotics prior to this procedure. I want to thank, Dr. Hoskins, for this kind referral. González Avalos M.D. DR: IRMA JOB#: [id number] CC: Ghada Hoskins M.D.; Fax#: [phone]
--- NOTE | 2017-05-06 18:55 | Pulmonology Progress Note ---
Assessment/Plan Problems: (1) Cerebrovascular accident (CVA) (2) Seizure disorder (3) Dislodged gastrostomy tube Assessment/Plan s/p peg today dc IV fluids aspiration precaution awaiting consent for PEG placement pending disharge Subjective ROS Limited/Unobtainable: Yes Allergies: Coded Allergies: No Known Allergies (Unverified , 04/30/17) Objective Last 24 Hour Vital Signs Date Time Temp Pulse Resp B/P Pulse Ox O2 Delivery O2 Flow Rate FiO2 05/06/17 16:12 99.5 99 20 118/74 99 Room Air 05/06/17 13:10 98.0 93 21 136/97 100 Nasal Cannula 3.0 05/06/17 13:04 99 14 99 05/06/17 12:59 94 14 100 05/06/17 12:55 94 22 140/98 100 Nasal Cannula 3.0 05/06/17 12:50 97 14 123/83 100 Nasal Cannula 3.0 05/06/17 12:45 97.6 93 17 115/86 100 Nasal Cannula 3.0 05/06/17 12:00 98.8 94 18 125/84 98 Room Air 05/06/17 08:00 99.5 102 18 123/96 97 Room Air 05/06/17 04:00 98.2 93 18 131/97 93 Room Air 05/06/17 00:00 97.7 79 20 131/92 96 Room Air 05/05/17 20:00 98.2 95 20 144/98 96 Room Air Intake and Output 05/05/17 05/06/17 19:00 07:00 Intake Total 450 ml 550 ml Output Total 500 ml Balance 450 ml 50 ml IV Total 450 ml 550 ml Output Urine Total 500 ml # Voids 3 Objective General Appearance: WD/WN HEENT: normocephalic, atraumatic Respiratory/Chest: chest wall non-tender, normal breath sounds Breasts: no masses Cardiovascular: normal peripheral pulses Abdomen: normal bowel sounds, soft, non tender Genitourinary: normal external genitalia Extremities: no cyanosis Skin: no rash Laboratory Tests 05/06/17 06:35: White Blood Count 6.1, Red Blood Count 5.39, Hemoglobin 18.2*H, Hematocrit 51.2 , Mean Corpuscular Volume 95, Mean Corpuscular Hemoglobin 33.7H, Mean Corpuscular Hemoglobin Concent 35.5, Red Cell Distribution Width 11.7, Platelet Count 168, Mean Platelet Volume 9.4, Neutrophils (%) (Auto) 60.4, Lymphocytes (% ) (Auto) 28.2, Monocytes (%) (Auto) 8.3, Eosinophils (%) (Auto) 1.8, Basophils ( %) (Auto) 1.3, Sodium Level 140, Potassium Level 3.9, Chloride Level 101, Carbon Dioxide Level 19L, Anion Gap 20H, Blood Urea Nitrogen 5L, Creatinine 0.7 , Estimat Glomerular Filtration Rate > 60, Glucose Level 86, Calcium Level 9.4 Current Medications Medications (Trade) Dose Ordered Sig/Jermaine Route PRN Reason Start Time Stop Time Status Last Admin Dose Admin Dextrose STAT PRN IV Hypoglycemia 04/30/17 12:30 05/30/17 12:29 Dextrose/Sodium Chloride (D5 0.45% NS) 1,000 ml @ 50 mls/hr Q20H IV 04/30/17 12:30 05/30/17 12:29 05/05/17 17:47 Heparin Sodium (Porcine) (Heparin 5000 units/ml) 5,000 units EVERY 12 HOURS SUBQ 04/30/17 21:00 05/30/17 20:59 05/05/17 21:11 Lorazepam (Ativan 2mg/ml 1ml) 0.5 mg Q4H PRN IV For Anxiety 05/05/17 10:30 05/12/17 10:29 Morphine Sulfate (Morphine Sulfate) 1 mg Q4H PRN IVP PAIN 4-10 05/05/17 10:00 05/12/17 09:59 Ondansetron HCl (Zofran) 4 mg Q6H PRN IVP Nausea & Vomiting 04/30/17 12:30 05/30/17 12:29 MELANIE GARCIA May 06, 2017 18:55
[2017-05-07] MEDS: D5 1/2NS 1,000 ML IV SCH (00:03)
[2017-05-07 00:11] VITALS: BP 124/89
[2017-05-07 04:15] VITALS: BP 131/93
[2017-05-07 08:00] VITALS: BP 122/87
[2017-05-07 08:18] LABS: BASOPHILS % (AUTO) 1.1 % (0.0-2.0); EOSINOPHILS % (AUTO) 1.6 % (0.0-3.0); LYMPHOCYTES % (AUTO) 14.6 % (20.0-45.0); MEAN CORPUSCULAR HEMOGLOBIN 32.8 PG (27.0-31.0); MEAN CORPUSCULAR HGB CONC 34.9 G/DL (32.0-36.0); MEAN CORPUSCULAR VOLUME 94 FL (80-99); MEAN PLATELET VOLUME 8.4 FL (6.5-10.1); MONOCYTES % (AUTO) 7.8 % (1.0-10.0); NEUTROPHILS % (AUTO) 74.9 % (45.0-75.0); PLATELET COUNT 198 K/UL (150-450); RED BLOOD COUNT 4.87 M/UL (4.70-6.10); RED CELL DISTRIBUTION WIDTH 11.6 % (11.6-14.8); WHITE BLOOD COUNT 8.6 K/UL (4.8-10.8)
[2017-05-07 08:22] LABS: ANION GAP 13 (5-15); CALCIUM 9.4 mg/dL (8.6-10.2); CARBON DIOXIDE 24 mEQ/L (20-30); CHLORIDE 103 mEQ/L (98-107); CREATININE 0.7 mg/dL (0.7-1.2); GLOMERULAR FILTRATION RATE > 60 mL/min (>60); HEMOLYSIS 8; POTASSIUM 3.1 mEQ/L (3.4-4.9); SODIUM 140 mEQ/L (135-145)
[2017-05-07] MEDS ORDERED: Heparin 5000 units/ml inj SUBQ SCH (09:30)
[2017-05-07] MEDS ORDERED: Morphine Sulfate 2mg/ml Inj IVP PRN (09:30)
[2017-05-07] MEDS ORDERED: LORazepam Inj 2mg/ml 1ml IV PRN (09:30)
[2017-05-07] MEDS ORDERED: D5 1/2NS 1,000 ML IV SCH (10:00)
[2017-05-07] MEDS ORDERED: Sterile Water Irrig 1000ml IRRIG ONE (10:57)
[2017-05-07] MEDS ORDERED: D5 1/2NS 1000ml IV ONE (10:57)
--- NOTE | 2017-05-07 11:24 | GI Progress Note ---
Assessment/Plan Problems: (1) Encounter for PEG (percutaneous endoscopic gastrostomy) ICD Codes: Z43.1 - Encounter for attention to gastrostomy SNOMED: 415902065, 872893727 (2) Gastrojejunostomy tube dislodgement ICD Codes: Z43.4 - Encounter for attention to other artificial openings of digestive tract SNOMED: 116674751 (3) Dislodged gastrostomy tube ICD Codes: Z43.1 - Encounter for attention to gastrostomy SNOMED: 187055875 Status: stable Status Narrative Discussed with Dr. Avalos. Assessment/Plan SUMMARY OF FINDINGS: Status post successful PEG placement. RECOMMENDATION: ok for DC per GI standpoint 1. Abdominal binder. 2. Elevate the head of the bed at times. 3. G-tube flush. 4. G-tube care. 5. GTFs 6. The patient received dose of antibiotics prior to this procedure. Subjective Subjective limited Objective Last 24 Hour Vital Signs Date Time Temp Pulse Resp B/P Pulse Ox O2 Delivery O2 Flow Rate FiO2 05/07/17 10:29 87 05/07/17 08:00 99.0 98 18 122/87 93 Room Air 05/07/17 05:41 114 05/07/17 04:15 99.0 107 20 131/93 97 Room Air 05/07/17 00:11 100.2 102 20 124/89 96 Room Air 05/06/17 20:00 98.2 121 20 107/68 96 Room Air 05/06/17 16:12 99.5 99 20 118/74 99 Room Air 05/06/17 13:10 98.0 93 21 136/97 100 Nasal Cannula 3.0 05/06/17 13:04 99 14 99 05/06/17 12:59 94 14 100 05/06/17 12:55 94 22 140/98 100 Nasal Cannula 3.0 05/06/17 12:50 97 14 123/83 100 Nasal Cannula 3.0 05/06/17 12:45 97.6 93 17 115/86 100 Nasal Cannula 3.0 05/06/17 12:00 98.8 94 18 125/84 98 Room Air Intake and Output 05/06/17 05/07/17 19:00 07:00 Intake Total 450 ml 430 ml Output Total 500 ml Balance -50 ml 430 ml Intake Oral 0 ml 0 ml Free Water 150 ml IV Total 450 ml 100 ml Tube Feeding 180 ml Output Urine Total 500 ml # Voids 5 Laboratory Tests Test 05/07/17 07:35 White Blood Count 8.6 K/UL (4.8-10.8) Red Blood Count 4.87 M/UL (4.70-6.10) Hemoglobin 16.0 G/DL (14.2-18.0) Hematocrit 45.8 % (42.0-52.0) Mean Corpuscular Volume 94 FL (80-99) Mean Corpuscular Hemoglobin 32.8 PG (27.0-31.0) H Mean Corpuscular Hemoglobin Concent 34.9 G/DL (32.0-36.0) Red Cell Distribution Width 11.6 % (11.6-14.8) Platelet Count 198 K/UL (150-450) Mean Platelet Volume 8.4 FL (6.5-10.1) Neutrophils (%) (Auto) 74.9 % (45.0-75.0) Lymphocytes (%) (Auto) 14.6 % (20.0-45.0) L Monocytes (%) (Auto) 7.8 % (1.0-10.0) Eosinophils (%) (Auto) 1.6 % (0.0-3.0) Basophils (%) (Auto) 1.1 % (0.0-2.0) Sodium Level 140 mEQ/L (135-145) Potassium Level 3.1 mEQ/L (3.4-4.9) L Chloride Level 103 mEQ/L (98-107) Carbon Dioxide Level 24 mEQ/L (20-30) Anion Gap 13 (5-15) Blood Urea Nitrogen 9 mg/dL (7-23) Creatinine 0.7 mg/dL (0.7-1.2) Estimat Glomerular Filtration Rate > 60 mL/min (>60) Glucose Level 107 mg/dL (74-106) H Calcium Level 9.4 mg/dL (8.6-10.2) Height (Feet): 5 Weight (Pounds): 138 General Appearance: no apparent distress, alert Cardiovascular: normal rate Respiratory/Chest: normal breath sounds Abdominal Exam: GT site - c/d/i Extremities: normal range of motion Priscilla Bocanegra NGisselle May 07, 2017 11:24
[2017-05-07 12:00] VITALS: BP 115/79
[2017-05-07] MEDS ORDERED: KCl 10% 40mEq/30ml liquid GT ONE (12:00)
--- NOTE | 2017-05-07 18:12 | Cardiology Report ---
APPROVED REPORT EKG Measurement Heart [id number] Sinus tachycardia Left ventricular hypertrophy with repolarization abnormality Possible Inferior infarct, age undetermined Abnormal ECG
--- NOTE | 2017-05-07 19:02 | Pulmonology Progress Note ---
Assessment/Plan Problems: (1) Cerebrovascular accident (CVA) (2) Seizure disorder (3) Dislodged gastrostomy tube Assessment/Plan s/p peg today dc IV fluids aspiration precaution awaiting consent for PEG placement pending disharge Subjective ROS Limited/Unobtainable: Yes Allergies: Coded Allergies: No Known Allergies (Unverified , 04/30/17) Objective Last 24 Hour Vital Signs Date Time Temp Pulse Resp B/P Pulse Ox O2 Delivery O2 Flow Rate FiO2 05/07/17 12:00 99.0 108 18 115/79 99 Room Air 05/07/17 10:29 87 05/07/17 08:00 99.0 98 18 122/87 93 Room Air 05/07/17 05:41 114 05/07/17 04:15 99.0 107 20 131/93 97 Room Air 05/07/17 00:11 100.2 102 20 124/89 96 Room Air 05/06/17 20:00 98.2 121 20 107/68 96 Room Air Intake and Output 05/06/17 05/07/17 19:00 07:00 Intake Total 450 ml 430 ml Output Total 500 ml Balance -50 ml 430 ml Intake Oral 0 ml 0 ml Free Water 150 ml IV Total 450 ml 100 ml Tube Feeding 180 ml Output Urine Total 500 ml # Voids 5 Objective General Appearance: WD/WN HEENT: normocephalic, atraumatic Respiratory/Chest: chest wall non-tender, normal breath sounds Breasts: no masses Cardiovascular: normal peripheral pulses Abdomen: normal bowel sounds, soft, non tender Genitourinary: normal external genitalia Extremities: no cyanosis Skin: no rash Laboratory Tests 05/07/17 07:35: White Blood Count 8.6, Red Blood Count 4.87, Hemoglobin 16.0, Hematocrit 45.8, Mean Corpuscular Volume 94, Mean Corpuscular Hemoglobin 32.8H, Mean Corpuscular Hemoglobin Concent 34.9, Red Cell Distribution Width 11.6, Platelet Count 198, Mean Platelet Volume 8.4, Neutrophils (%) (Auto) 74.9, Lymphocytes (%) (Auto) 14.6L, Monocytes (%) (Auto) 7.8, Eosinophils (%) (Auto) 1.6, Basophils (%) (Auto ) 1.1, Sodium Level 140, Potassium Level 3.1L, Chloride Level 103, Carbon Dioxide Level 24, Anion Gap 13, Blood Urea Nitrogen 9, Creatinine 0.7, Estimat Glomerular Filtration Rate > 60, Glucose Level 107H, Calcium Level 9.4 MELANIE GARCIA May 07, 2017 19:02
--- NOTE | 2017-05-08 08:54 | Diagnostic Imaging Report ---
Indications: DYSPHAGIA Technique: Patient ingested multiple substances under the supervision of speech pathology. Video fluoroscopic recording performed. Total fluoroscopy time 290 seconds. Total dose area product 0.65154 mGycm2 Comparison: none Findings: Equivocal single a so no aspiration of thin liquid barium demonstrated. No aspiration or penetration of other substances. Some early pooling seen in the vallecula. History of contrast bolus with swallowing. Impression: Questionable aspiration of thin liquid barium Other oromotor dysfunction as described Please refer to speech pathology report for more detailed analysis
--- NOTE | 2017-05-09 09:43 | Discharge Summary ---
Discharge Summary Hospital Course Date of Admission Apr 30, 2017 at 11:29 Date of Discharge May 07, 2017 at 13:30 Admitting Diagnosis G-tube dislodgment LALIT Schmitt is a 52 year old male who was admitted on Apr 30, 2017 at 11: 29 for G-Tube Dislodgment Hospital Course [id number] Discharge Discharge Disposition Patient was discharged to snf Discharge Diagnoses: Michelle Villasenor NP May 09, 2017 09:43
--- NOTE | 2017-05-09 11:46 | Discharge Summary 2 SIG ---
DATE OF ADMISSION: 04/30/2017 DATE OF DISCHARGE: 05/07/2017 NON DESTRUCTIVE TESTING ENGINEER: González Avalos M.D. BRIEF HOSPITAL COURSE: The patient is a 52-year-old male, who [facility] from [facility] after G-tube was dislodged. There was no temporary replacement of Arreola catheter done and G-tube was unable to be replaced at the emergency room as G-tube site was already closed. He was then admitted as replacement would need to be done by fiscal officer in an operating room. He was seen by Dr. Avalos and was planned to undergo G-tube placement the following day, however, procedure was canceled as there was no consent obtained. He was continued on IV hydration. Social service was contacted to locate family and multiple attempts had been done, however, there was no call back. He was then referred to bioethics committee, who assessed that there is no medical contraindication to replace the gastrostomy tube that has fallen out prior to admission. He underwent swallow evaluation and was recommended non-oral means of feeding, however, for quality of life, patient was given liquefied pureed and nectar-thick soup consistency with nectar thick liquids on strict aspiration precaution with one-to-one feed. Eventually, on 05/06/2017, he underwent a PEG tube placement by Dr. Avalos. Postprocedure, he was given abdominal binder and G-tube care. Feedings were started and was tolerating feeding well. Following day, the patient was discharged back to half-way. FINAL DIAGNOSES: 1. Dislodged gastrostomy tube, status post esophagogastroduodenoscopy with percutaneous endoscopic gastrostomy tube placement. 2. Old cerebrovascular disorder. 3. Seizure disorder. 4. Dysphagia. 5. High aspiration risk. Ghada Hoskins M.D. I have been assigned to dictate discharge summary on this account and I was not involved in the patient's management. Michelle Villasenor N.P. DR: MARK JOB#: [id number] CC: LUKE
== END 2017-05-07 13:30 | DRG 252 ==
LOC: EDBD 10:40 → EMR 11:08 → 4E 11:29 → EDBEDREQ 12:57 → 2E 05-06 22:46
PROC: 0DH63UZ Insertion of Feeding Device into Stomach, Percutaneous Approach (ICD-10-PCS; principal; 2017-05-06 12:33)
DX: K94.23 Gastrostomy malfunction (principal); I42.9 Cardiomyopathy, unspecified; R13.10 Dysphagia, unspecified; I69.354 Hemiplegia and hemiparesis following cerebral infarction affecting left non-dominant side; F03.90 Unspecified dementia, unspecified severity, without behavioral disturbance, psychotic disturbance, mood disturbance, and anxiety; R62.7 Adult failure to thrive; Y83.3 Surgical operation with formation of external stoma as the cause of abnormal reaction of the patient, or of later complication, without mention of misadventure at the time of the procedure; I10 Essential (primary) hypertension; G40.909 Epilepsy, unspecified, not intractable, without status epilepticus; K21.9 Gastro-esophageal reflux disease without esophagitis; K29.70 Gastritis, unspecified, without bleeding; E87.6 Hypokalemia
CPT/HCPCS: 36415; 74230; 80048; 80053; 80061; 83735; 84443; 85025; 85610; 85730; 87081; 93005; 93970; 94003; 94150

== ENCOUNTER 2018-06-25 09:21 | Outpatient (CLI) | payer MEDICAID ==
[~2018-06-25 09:21] MED LIST: ACETAMINOPHEN120 MG PO; ASPIR 8181 MG ORAL; FLEET ENEMA133 M1 RC; KEPPRA500 M4 ORAL; LOPRESSOR HCT1 EAC3 ORAL; MULTI-DAY PLUS1 EAC1 PO; SIMVASTATIN20 MG ORAL
--- NOTE | 2018-06-25 11:04 | Diagnostic Imaging Report ---
Clinical Indication: Chest pain, history of lung nodule Technique: Spiral acquisitions obtained through the chest. No IV contrast utilized, per referring physician request. Multiplanar reconstructions generated. Total dose length product 508.62 mGycm. CTDIvol(s) 14.4 mGy. Dose reduction achieved using automated exposure control Comparison: none Findings: Multiple cavitating lesions are seen in the right upper lobe. The largest of these demonstrates a moderately thick wall, measures 3 cm AP by 2.9 cm transverse by 4.5 cm craniocaudad, contains a central opacity which measures 2.8 x 3 cm. Bronchi are seen at the periphery of the central opacity. A second cavitary lesion is seen in the right upper lobe, slightly inferior and anterior, measures 3.5 cm AP by 2.8 cm transverse by 2.1 cm craniocaudad, and there are several smaller similar areas of cavitation immediately adjacent. There is a 2.3 x 2.4 cm confluent opacity which demonstrates some tubular lucency centrally which may indicate an area of bronchiectasis. This is in communication with a tubular lucency with central tubular opacity located slightly more medially. These lesions are all adjacent to each other. Other blebs or bullae are seen within the right upper lobe, primarily in the periphery. Reticular and nodular opacities are seen in the inferior aspect of the right upper lobe. Less extensive scarring and bullous change is seen in the left upper lobe. A peripheral lucency in the posterior inferolateral left upper lobe measures 1 cm diameter, has a thick wall, possibly representing a cavity rather than a bulla. Linear interstitial opacities in the left lower lobe most likely represent compressive atelectasis due to an enlarged heart. Nonspecific linear interstitial opacities are seen throughout the right lower lobe. The right middle lobe is unremarkable. No effusions are evident. As mentioned above, the heart is enlarged. There are extensive coronary artery calcifications. No mediastinal or hilar mass or adenopathy. The thyroid is unremarkable. Limited views of the upper abdomen demonstrate a gastrostomy tube in good position. Impression: Conglomerate of somewhat thick walled cavitary lesions in the right upper lobe, as described, some of which contain central opacities. Most likely on the basis of postinflammatory change such as old tuberculosis or other necrotizing process. The central opacities in at least 2 of these lesions could represent fungus balls, but the appearance is not typical for such; suspect that these more likely represent central areas of confluent fibrosis given evidence of bronchiectasis within or adjacent to these opacities. Neoplasm as etiology of any of the opacities is also a possibility Reticular opacities in the inferior right upper lobe, likely postinflammatory change related to the above Other areas of mostly subpleural lucency most likely represent bullous changes or blebs. That in the periphery of the inferior left upper lobe most likely represents cavitating lesion, however. Interstitial opacities in the bilateral lower lobes, likely combination of compressive atelectatic change and specific chronic interstitial disease Cardiomegaly Gastrostomy Findings discussed by phone with Dr. Rodriguez at at the time of interpretation The CT scanner at [facility] is accredited by the [employer] and the scans are performed using protocols designed to limit radiation exposure to as low as reasonably achievable to attain images of sufficient resolution adequate for diagnostic evaluation.
== END 2018-06-25 11:21 | disposition home or self-care (01) ==
LOC: CAT 09:21
DX: R07.9 Chest pain, unspecified (principal); Z87.09 Personal history of other diseases of the respiratory system; I51.7 Cardiomegaly; Z93.1 Gastrostomy status
CPT/HCPCS: 71250